=== PATIENT | female | born 1955 | race Caucasian/White ===

== ENCOUNTER → 2019-05-26 17:08 | Emergency (ER) | payer MEDICARE, SELFPAY ==
--- NOTE | ~2019-05-26 | XR_ITS ---
EXAMINATION: XR chest 2V DATE: 05/26/2019 18:28 INDICATION: Shortness of breath and cough and wheezing. TECHNIQUE: Frontal and lateral views of the chest were obtained. COMPARISON: Chest 2 views 05/15/2019, CT abdomen and pelvis 04/08/2013 FINDINGS: There is chronic eventration of anterior right hemidiaphragm. No pneumonia, pleural effusio n, or pneumothorax. The heart size is normal. IMPRESSION: 1. No acute cardiopulmonary disease. Reviewed, dictated and finalized at location A. CTOR OF ADMISSIONS
[2019-05-26 17:09] VITALS: BP 144/66; PULSE 81; RESP 19; TEMP 36.9; O2SAT 98
--- NOTE | 2019-05-26 17:16 | ED.SOB ---
HPI - SOB/Dyspnea General Chief Complaint: Shortness of Breath/Dyspnea Stated Complaint: SOB Time Seen by Provider: 05/26/19 17:15 Source: patient and RN notes reviewed Mode of arrival: ambulatory Limitations: no limitations History of Present Illness HPI Narrative: A 63 y/o female presents to the ED with SOB for the past couple weeks. She states that she has been seen by her PCP for this issue and was given Levaquin for 10 days, which she completed yesterday, and an inhaler, but denies it alleviating her symptoms. She reports associated cough, wheezes, and fatigue. She notes that her SOB is aggravated with exertion. She denies any CP, fevers, chills, sweats, N/V/D, or ABD pain. MD elicited complaint: shortness of breath Onset (ago): week(s) (a couple) Exacerbating factors: exertion Relieving factors: nothing Associated symptoms: cough, wheezing and other (fatigue) Related Data Home Medications Medication Instructions Recorded Confirmed aspirin 81 mg tablet,delayed 81 mg PO DAILY 05/15/19 release bupropion HCl 300 mg 24 hr tablet, 300 mg PO QAM 05/15/19 extended release calcium carb 300 mg-D3 800 1 tablet PO DAILY 05/15/19 unit-mag ox 25 mg-ad copy writer 0.5 mg-jose-Zn tablet cetirizine 10 mg tablet 10 mg PO DAILY 05/15/19 clotrimazole-betamethasone 1 1 applic TOPICAL BID 05/15/19 %-0.05 % topical cream cyclobenzaprine 10 mg tablet 10 mg PO TID 05/15/19 escitalopram oxalate 20 mg tablet 20 mg PO DAILY 05/15/19 lamotrigine 200 mg tablet 200 mg PO BID 05/15/19 levothyroxine 88 mcg tablet 88 mcg PO DAILY 05/15/19 linaclotide 145 mcg capsule 145 mcg PO DAILY 05/15/19 lorazepam 1 mg tablet 1 mg PO BID PRN 05/15/19 metoprolol tartrate 50 mg tablet 50 mg PO DAILY 05/15/19 modafinil 200 mg tablet 200 mg PO QAM 05/15/19 montelukast 10 mg tablet 10 mg PO DAILY 05/15/19 nystatin 100,000 unit/gram topical 1 applic TOPICAL BID 05/15/19 powder omeprazole 40 mg capsule,delayed 40 mg PO BID 05/15/19 release oxybutynin chloride 5 mg tablet 5 mg PO TID 05/15/19 primidone 250 mg tablet 500 mg PO TID tablet 05/15/19 prochlorperazine maleate 10 mg 10 mg PO Q8H PRN 05/15/19 tablet prochlorperazine maleate 10 mg 10 mg PO TID PRN tablet 05/15/19 tablet topiramate 100 mg tablet 100 mg PO DAILY 05/15/19 trazodone 100 mg tablet 200 mg PO BID tablet 05/15/19 Allergies Allergy/AdvReac Type Severity Reaction Status Date / Time Penicillins Allergy Mild Swelling Unverified 05/15/19 10:37 of Lip/Tongue/Throat amoxicillin Allergy Unknown Swelling Verified 05/15/19 10:37 of Lip/Tongue/Throat tetracycline Allergy Unknown Swelling Verified 05/15/19 10:37 of Lip/Tongue/Throat Review of Systems Review of Systems: All systems reviewed & are unremarkable except as noted in HPI and below Constitutional: Constitutional: Denies chills, Reports fatigue, Denies fever(s) and Denies other (sweats) Cardiovascular: Cardiovascular: Denies chest pain Respiratory: Respiratory: Reports cough, Reports dyspnea and Reports wheezing Gastrointestinal: Gastrointestinal: Denies abdominal pain, Denies diarrhea, Denies nausea and Denies vomiting [facility] Past Medical History Medical History (Updated 05/26/19 @ 19:12 by Josue Chow MD) Anxiety (Acute) Arthritis (Acute) Bronchospasm (Acute) patient transferred by private vehicle to the emergency room for further evaluati Carpal tunnel syndrome (Acute) lt Depression (Acute) Fibromyalgia (Acute) GERD (gastroesophageal reflux disease) (Acute) H/O: HTN (hypertension) (Acute) Hx of headache (Acute) MVP (mitral valve prolapse) (Acute) Peripheral neuropathy (Acute) Raynauds disease (Acute) Surgical History Surgical History (Updated 05/26/19 @ 17:35 by Martinez Rey) History of appendectomy (Acute) History of carpal tunnel release (Acute) lt History of cholecystectomy (Acute) History of dilation and curettage (Acute) History of hysterectomy (Ac
[2019-05-26 17:20] VITALS: PULSE 82; RESP 18; O2SAT 100
[2019-05-26] MEDS: predniSONE 20 MG TABLET 60 MG PO (17:37)
[2019-05-26] MEDS: ALBUTEROL SULFATE NEB 2.5 MG/0.5 ML INH 10 MG INHALATION (17:53)
[2019-05-26] MEDS: IPRATROPIUM BR 0.02% INH SOLN 0.5 MG/2.5 ML VIAL 1 MG INHALATION (17:53)
[2019-05-26 18:02] VITALS: PULSE 74; RESP 18; O2SAT 96
--- NOTE | 2019-05-26 19:10 | PC.NURSE ---
Patient's oxygen monitored during ambulation assessment. O2 sat dropped to 94% during ambulation with no supplemental O2. Dr Chow aware.
[2019-05-26 19:29] VITALS: BP 107/63; PULSE 103; RESP 18; O2SAT 99
== END ==
PROVIDERS: Emergency Provider Emergency Medicine; PCP Family Medicine
DX: R06.09 Other forms of dyspnea (principal); R06.2 Wheezing; F41.9 Anxiety disorder, unspecified; M19.90 Unspecified osteoarthritis, unspecified site; F32.9 Major depressive disorder, single episode, unspecified; M79.7 Fibromyalgia; I10 Essential (primary) hypertension; I34.1 Nonrheumatic mitral (valve) prolapse; Z87.891 Personal history of nicotine dependence
CPT/HCPCS: 71046; 99283; J7512

== ENCOUNTER 2020-12-30 08:34 | Outpatient (CLI) | payer MEDICARE, SELFPAY ==
[2020-12-30 16:43] LABS: Basophils Percent Auto 0.6 % (0.2-1.2); Eosinophils Absolute Auto 0.1 K/mm3 (0-0.3); Eosinophils Percent Auto 2.7 % (0-4.4); Hematocrit 36.9 % (37.0-47.0); Hemoglobin 11.5 g/dL (12.0-15.0); Immature Granulocyte Absolute 0.01 K/mm3 (0.00-0.031); Immature Granulocyte Percent A 0.2 % (0-0.5); Lymphocytes Absolute Auto 1.24 K/mm3 (0.9-3.2); Lymphocytes Percent Auto 26.1 % (18.3-44.2); Mean Corpuscular HGB Conc 31.2 g/dl (32-36); Mean Corpuscular Hemoglobin 29.3 pg (26-34); Mean Corpuscular Volume 94.1 fl (80-100); Mean Platelet Volume 10.7 fl (7.4-10.4); Monocytes Absolute Auto 0.3 K/mm3 (0.1-0.6); Monocytes Percent Auto 6.5 % (2.6-8.5); Neutrophils Percent Auto 63.9 % (45.5-73.1); Platelet Count Result 176 k/mm3 (150-375); Red Blood Count 3.92 M/mm3 (4.2-5.4); Red Cell Distribution Width 14.5 % (11.5-14.5); White Blood Count 4.8 K/mm3 (4.5-10.0)
[2020-12-30 16:50] LABS: Alanine Aminotransferase 38 U/L (4-35); Albumin Level 4.4 g/dL (3.5-5.1); Alkaline Phosphatase 92 U/L (38-126); Anion Gap 9 mmol/L (8-16); Aspartate Amino Transferase 39 U/L (14-36); Bilirubin,Total 0.5 mg/dL (0.2-1.3); Blood Urea Nitrogen 19 mg/dL (7-17); Calcium 9.3 mg/dL (8.4-10.2); Carbon Dioxide 28 mmol/L (22-30); Chloride 99 mmol/L (98-107); Cholesterol 172 mg/dL (0-200); Estimated Glomerular Filt Rate 56; Glucose 95 mg/dL (65-105); HDL Direct 68 mg/dL; Potassium 4.1 mmol/L (3.4-5.0); Sodium 136 mmol/L (137-145); Triglycerides 104 mg/dL (<150)
[2020-12-30 17:01] LABS: LDL Cholesterol Direct 74 mg/dL
[2020-12-30 17:06] LABS: Vitamin D 25 Hydroxy 42.6 ng/mL
[2020-12-30 17:21] LABS: Thyroid Stimulating Hormone 0.924 uIU/mL (0.465-4.680)
[2021-01-03 13:30] LABS: C-Peptide 2.71 ng/mL (0.80-3.85)
== END 2020-12-30 08:35 | disposition home or self-care (01) ==
LOC: ANHBWCLAB 08:36
PROVIDERS: PCP Family Medicine; Visit Provider Family Medicine
DX: M79.7 Fibromyalgia (principal); E87.1 Hypo-osmolality and hyponatremia; R79.89 Other specified abnormal findings of blood chemistry; E53.8 Deficiency of other specified B group vitamins; F41.9 Anxiety disorder, unspecified; R53.83 Other fatigue; E03.9 Hypothyroidism, unspecified; R94.6 Abnormal results of thyroid function studies; F19.90 Other psychoactive substance use, unspecified, uncomplicated; M34.9 Systemic sclerosis, unspecified; N39.0 Urinary tract infection, site not specified; E55.9 Vitamin D deficiency, unspecified; Z51.81 Encounter for therapeutic drug level monitoring; Z79.899 Other long term (current) drug therapy; Z00.00 Encounter for general adult medical examination without abnormal findings
CPT/HCPCS: 36415; 80053; 80061; 82306; 82607; 82746; 84443; 84681; 85025

== ENCOUNTER 2021-06-01 11:36 | Outpatient (CLI) | payer MEDICARE, SELFPAY ==
[2021-06-01 18:49] LABS: Basophils Percent Auto 0.6 % (0.2-1.2); Eosinophils Absolute Auto 0.2 K/mm3 (0-0.3); Eosinophils Percent Auto 3.8 % (0-4.4); Hematocrit 39.1 % (37.0-47.0); Hemoglobin 12.2 g/dL (12.0-15.0); Immature Granulocyte Absolute 0.01 K/mm3 (0.00-0.031); Immature Granulocyte Percent A 0.2 % (0-0.5); Lymphocytes Absolute Auto 1.58 K/mm3 (0.9-3.2); Lymphocytes Percent Auto 33.7 % (18.3-44.2); Mean Corpuscular HGB Conc 31.2 g/dl (32-36); Mean Corpuscular Hemoglobin 29.8 pg (26-34); Mean Corpuscular Volume 95.6 fl (80-100); Mean Platelet Volume 10.6 fl (7.4-10.4); Monocytes Absolute Auto 0.3 K/mm3 (0.1-0.6); Monocytes Percent Auto 6.4 % (2.6-8.5); Neutrophils Absolute Auto 2.6 K/mm3 (1.3-6.7); Neutrophils Percent Auto 55.3 % (45.5-73.1); Platelet Count Result 176 k/mm3 (150-375); Red Blood Count 4.09 M/mm3 (4.2-5.4); Red Cell Distribution Width 13.9 % (11.5-14.5); White Blood Count 4.7 K/mm3 (4.5-10.0)
[2021-06-01 20:51] LABS: Alanine Aminotransferase 44 U/L (4-35); Albumin Level 4.8 g/dL (3.5-5.1); Alkaline Phosphatase 110 U/L (38-126); Anion Gap 14 mmol/L (8-16); Aspartate Amino Transferase 42 U/L (14-36); Bilirubin,Total 0.4 mg/dL (0.2-1.3); Blood Urea Nitrogen 15 mg/dL (7-17); Calcium 9.4 mg/dL (8.4-10.2); Carbon Dioxide 24 mmol/L (22-30); Chloride 97 mmol/L (98-107); Estimated Glomerular Filt Rate > 60; Glucose 102 mg/dL (65-110); Potassium 4.5 mmol/L (3.4-5.0); Sodium 135 mmol/L (137-145)
[2021-06-01 21:08] LABS: Vitamin D 25 Hydroxy 37.3 ng/mL
[2021-06-01 21:22] LABS: Thyroid Stimulating Hormone Reflex 0.884 uIU/mL (0.465-4.68)
== END 2021-06-01 11:37 | disposition home or self-care (01) ==
PROVIDERS: PCP Family Medicine; Visit Provider Family Medicine
DX: N39.0 Urinary tract infection, site not specified (principal); D64.9 Anemia, unspecified; E03.9 Hypothyroidism, unspecified; E53.8 Deficiency of other specified B group vitamins; E87.1 Hypo-osmolality and hyponatremia; E87.6 Hypokalemia; F41.9 Anxiety disorder, unspecified; M79.7 Fibromyalgia; R79.89 Other specified abnormal findings of blood chemistry; R94.6 Abnormal results of thyroid function studies; E55.9 Vitamin D deficiency, unspecified
CPT/HCPCS: 36415; 80053; 82306; 82607; 84443; 85025

== ENCOUNTER 2021-06-28 09:50 | Outpatient (CLI) | payer MEDICARE, OTHER, SELFPAY ==
--- NOTE | ~2021-06-28 | US_ITS ---
EXAMINATION: US abdomen limited DATE: 06/28/2021 10:19 INDICATION: Abnormal liver function tests. TECHNIQUE: Multiple grayscale and Doppler ultrasound images of the abdomen were obtained. COMPARISON: CT abdomen and pelvis 04/08/2013 FINDINGS: The visualized portions of the head, body, and tail of the pancreas are normal. There is di ffuse hepatic steatosis. There is normal flow in main portal vein. The gallbladder is absent. The com mon duct is normal and measures 6 mm. IMPRESSION: 1. Diffuse hepatic steatosis. Reviewed, dictated and finalized at location A. 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
[2021-06-28 10:42] LABS: Alanine Aminotransferase 38 U/L (4-35); Albumin Level 4.7 g/dL (3.5-5.1); Alkaline Phosphatase 103 U/L (38-126); Aspartate Amino Transferase 34 U/L (14-36); Bilirubin,Total 0.4 mg/dL (0.2-1.3)
[2021-06-28 12:57] LABS: Hepatitis B Surface Antigen Negative (Negative)
[2021-06-28 13:01] LABS: HAV RESULT Negative (Negative); Hepatitis B Core IgM Result Negative (Negative)
[2021-06-28 13:25] LABS: Hepatitis C Virus Antibody Negative (Negative)
[2021-07-01 13:35] LABS: GGT 39 U/L (3-65)
== END 2021-06-28 09:51 | disposition home or self-care (01) ==
PROVIDERS: PCP Family Medicine; Visit Provider Family Medicine
DX: R74.8 Abnormal levels of other serum enzymes (principal); K76.0 Fatty (change of) liver, not elsewhere classified
CPT/HCPCS: 36415; 76705; 80074; 80076; 82977

== ENCOUNTER 2021-11-29 11:14 | Outpatient (CLI) | payer MEDICARE, OTHER, SELFPAY ==
[2021-11-29 18:37] LABS: Hematocrit 37.3 % (37.0-47.0); Hemoglobin 11.8 g/dL (12.0-15.0); Mean Corpuscular HGB Conc 31.6 g/dl (32-36); Mean Corpuscular Hemoglobin 29.4 pg (26-34); Mean Platelet Volume 10.4 fl (7.4-10.4); Platelet Count Result 192 k/mm3 (150-375); Red Blood Count 4.01 M/mm3 (4.2-5.4); Red Cell Distribution Width 14.6 % (11.5-14.5)
[2021-11-29 19:45] LABS: Alanine Aminotransferase 49 U/L (6-35); Albumin Level 4.5 g/dL (3.5-5.1); Alkaline Phosphatase 87 U/L (38-126); Anion Gap 9 mmol/L (8-16); Aspartate Amino Transferase 44 U/L (14-36); Bilirubin,Total 0.4 mg/dL (0.2-1.3); Blood Urea Nitrogen 20 mg/dL (7-17); Carbon Dioxide 26 mmol/L (22-30); Chloride 103 mmol/L (98-107); Estimated Glomerular Filt Rate 56; Glucose 101 mg/dL (65-110); Potassium 4.6 mmol/L (3.4-5.0); Sodium 138 mmol/L (137-145)
[2021-12-04 23:56] LABS: ALT 39 U/L (6-29); Alpha-2-Macroglobulin 248 mg/dL (106-279); Apolipoprotein A1 176 mg/dL (101-198); Fibrosis Stage F0; GGT 45 U/L (3-65); Haptoglobin 155 mg/dL (43-212); Necroinflammat Act Grade A0-A1; Total Bilirubin 0.3 mg/dL (0.2-1.2)
== END 2021-11-29 11:15 | disposition home or self-care (01) ==
PROVIDERS: PCP Family Medicine; Visit Provider Family Medicine
DX: N39.0 Urinary tract infection, site not specified (principal); R74.8 Abnormal levels of other serum enzymes; E87.1 Hypo-osmolality and hyponatremia; D64.9 Anemia, unspecified; E87.6 Hypokalemia; E03.9 Hypothyroidism, unspecified; K76.0 Fatty (change of) liver, not elsewhere classified
CPT/HCPCS: 36415; 80053; 81596; 84443; 85027

== ENCOUNTER 2022-03-14 14:14 | Outpatient (CLI) | payer MEDICARE, OTHER, SELFPAY ==
--- NOTE | ~2022-03-14 | MM_ITS ---
EXAMINATION: MM screening clementine BI w aire HISTORY: Screening mammogram TECHNIQUE: Craniocaudal and mediolateral oblique 3-D tomosynthesis images were obtained and synthetic 2-D images were generated. CAD analysis was submitted and interpreted. COMPARISON: 12/26/2017, 09/02/2008 BREAST PARENCHYMAL COMPOSITION: The breasts are almost entirely fatty. FINDINGS: There is no suspicious mass, calcification, or architectural distortion to suggest malignan cy in either breast. There has been no suspicious interval change. IMPRESSION: 1. No mammographic evidence of malignancy. 2. Recommend routine screening mammography in one year. BI-RADS Category 1: Negative Reviewed, dictated and finalized at location A.
== END 2022-03-14 14:15 | disposition home or self-care (01) ==
PROVIDERS: PCP Family Medicine; Visit Provider Family Medicine
DX: Z12.31 Encounter for screening mammogram for malignant neoplasm of breast (principal)
CPT/HCPCS: 77063; 77067

== ENCOUNTER 2022-07-04 13:18 | Outpatient (CLI) | payer MEDICARE, OTHER, SELFPAY ==
[2022-07-04 18:11] LABS: Cholesterol 223 mg/dL (0-200); HDL Direct 64 mg/dL; Triglycerides 212 mg/dL (<150)
[2022-07-04 18:23] LABS: LDL Cholesterol Direct 104 mg/dL
[2022-07-04 18:39] LABS: Thyroid Stimulating Hormone 0.943 uIU/mL (0.465-4.680)
[2022-07-04 19:05] LABS: Basophils Percent Auto 0.6 % (0.2-1.2); Eosinophils Absolute Auto 0.3 K/mm3 (0-0.3); Eosinophils Percent Auto 6.6 % (0-4.4); Hematocrit 40.5 % (37.0-47.0); Hemoglobin 12.4 g/dL (12.0-15.0); Immature Granulocyte Absolute 0.02 K/mm3 (0.00-0.031); Immature Granulocyte Percent A 0.4 % (0-0.5); Lymphocytes Absolute Auto 1.55 K/mm3 (0.9-3.2); Lymphocytes Percent Auto 29.9 % (18.3-44.2); Mean Corpuscular HGB Conc 30.6 g/dl (32-36); Mean Corpuscular Hemoglobin 28.3 pg (26-34); Mean Corpuscular Volume 92.5 fl (80-100); Mean Platelet Volume 10.2 fl (7.4-10.4); Monocytes Absolute Auto 0.3 K/mm3 (0.1-0.6); Monocytes Percent Auto 5.2 % (2.6-8.5); Neutrophils Percent Auto 57.3 % (45.5-73.1); Platelet Count Result 192 k/mm3 (150-375); Red Blood Count 4.38 M/mm3 (4.2-5.4); White Blood Count 5.2 K/mm3 (4.5-10.0)
== END 2022-07-04 13:19 | disposition home or self-care (01) ==
PROVIDERS: PCP Family Medicine; Visit Provider Family Medicine
DX: E03.9 Hypothyroidism, unspecified (principal); E87.1 Hypo-osmolality and hyponatremia; N39.0 Urinary tract infection, site not specified; R94.6 Abnormal results of thyroid function studies
CPT/HCPCS: 36415; 80061; 84443; 85025

== ENCOUNTER 2022-12-10 14:22 | Outpatient (CLI) | payer MEDICARE, OTHER, SELFPAY ==
[2022-12-10 19:34] LABS: Vitamin D 25 Hydroxy 27.3 ng/mL
[2022-12-10 22:04] LABS: Anion Gap 8 mmol/L (8-16); Blood Urea Nitrogen 19 mg/dL (7-17); Calcium 9.2 mg/dL (8.4-10.2); Carbon Dioxide 29 mmol/L (22-30); Chloride 101 mmol/L (98-107); Cholesterol 189 mg/dL (0-200); Estimated Glomerular Filt Rate > 60; Glucose 98 mg/dL (65-110); HDL Direct 64 mg/dL; Potassium 4.3 mmol/L (3.4-5.0); Sodium 138 mmol/L (137-145); Triglycerides 150 mg/dL (<150)
[2022-12-10 22:15] LABS: LDL Cholesterol Direct 103 mg/dL
== END 2022-12-10 14:23 | disposition home or self-care (01) ==
PROVIDERS: PCP Family Medicine; Visit Provider Nurse Practitioner Adult Health
DX: E03.9 Hypothyroidism, unspecified (principal); R94.6 Abnormal results of thyroid function studies; I10 Essential (primary) hypertension; R79.89 Other specified abnormal findings of blood chemistry; E55.9 Vitamin D deficiency, unspecified
CPT/HCPCS: 36415; 80048; 80061; 82306; 84443

== ENCOUNTER 2023-06-10 14:20 | Outpatient (CLI) | payer MEDICARE, OTHER, SELFPAY ==
[2023-06-10 19:43] LABS: Basophils Percent Auto 0.8 % (0.2-1.2); Eosinophils Absolute Auto 0.3 K/mm3 (0-0.3); Eosinophils Percent Auto 4.8 % (0-4.4); Hemoglobin 11.1 g/dL (12.0-15.0); Immature Granulocyte Absolute 0.02 K/mm3 (0.00-0.031); Immature Granulocyte Percent A 0.4 % (0-0.5); Lymphocytes Absolute Auto 1.64 K/mm3 (0.9-3.2); Lymphocytes Percent Auto 31.5 % (18.3-44.2); Mean Corpuscular HGB Conc 30.8 g/dl (32-36); Mean Corpuscular Volume 90.7 fl (80-100); Mean Platelet Volume 10.7 fl (7.4-10.4); Monocytes Absolute Auto 0.3 K/mm3 (0.1-0.6); Neutrophils Percent Auto 56.5 % (45.5-73.1); Platelet Count Result 186 k/mm3 (150-375); Red Blood Count 3.97 M/mm3 (4.2-5.4); Red Cell Distribution Width 14.1 % (11.5-14.5); White Blood Count 5.2 K/mm3 (4.5-10.0)
[2023-06-10 20:11] LABS: Anion Gap 13 mmol/L (8-16); Blood Urea Nitrogen 26 mg/dL (7-17); Calcium 9.6 mg/dL (8.4-10.2); Carbon Dioxide 25 mmol/L (22-30); Chloride 100 mmol/L (98-107); Cholesterol 189 mg/dL (0-200); Estimated Glomerular Filt Rate 55; Glucose 106 mg/dL (65-110); HDL Direct 54 mg/dL; Magnesium 1.6 mg/dL (1.6-2.3); Potassium 3.9 mmol/L (3.4-5.0); Sodium 138 mmol/L (137-145); Triglycerides 228 mg/dL (<150)
[2023-06-10 20:22] LABS: LDL Cholesterol Direct 90 mg/dL
[2023-06-10 20:23] LABS: Vitamin D 25 Hydroxy 50.5 ng/mL
[2023-06-10 21:17] LABS: Folic Acid 4.2 ng/mL (2.76->20)
== END 2023-06-10 14:21 | disposition home or self-care (01) ==
PROVIDERS: PCP Nurse Practitioner Adult Health; Visit Provider Nurse Practitioner Adult Health
DX: E55.9 Vitamin D deficiency, unspecified (principal); E53.8 Deficiency of other specified B group vitamins; I10 Essential (primary) hypertension; R79.89 Other specified abnormal findings of blood chemistry
CPT/HCPCS: 36415; 80048; 80061; 82306; 82607; 82746; 83735; 84443; 85025

== ENCOUNTER 2023-12-16 14:01 | Outpatient (CLI) | payer MEDICARE, OTHER, SELFPAY ==
[2023-12-16 18:56] LABS: Basophils Percent Auto 0.7 % (0.2-1.2); Eosinophils Absolute Auto 0.2 K/mm3 (0-0.3); Eosinophils Percent Auto 3.8 % (0-4.4); Hematocrit 36.3 % (37.0-47.0); Immature Granulocyte Absolute 0.02 K/mm3 (0.00-0.031); Immature Granulocyte Percent A 0.3 % (0-0.5); Lymphocytes Absolute Auto 1.48 K/mm3 (0.9-3.2); Lymphocytes Percent Auto 25.8 % (18.3-44.2); Mean Corpuscular HGB Conc 30.3 g/dl (32-36); Mean Corpuscular Hemoglobin 27.9 pg (26-34); Mean Corpuscular Volume 92.1 fl (80-100); Mean Platelet Volume 10.4 fl (7.4-10.4); Monocytes Absolute Auto 0.4 K/mm3 (0.1-0.6); Monocytes Percent Auto 6.5 % (2.6-8.5); Neutrophils Absolute Auto 3.6 K/mm3 (1.3-6.7); Neutrophils Percent Auto 62.9 % (45.5-73.1); Platelet Count Result 187 k/mm3 (150-375); Red Blood Count 3.94 M/mm3 (4.2-5.4); Red Cell Distribution Width 14.2 % (11.5-14.5); White Blood Count 5.7 K/mm3 (4.5-10.0)
[2023-12-16 19:26] LABS: Vitamin D 25 Hydroxy 72.9 ng/mL
[2023-12-16 20:11] LABS: Alanine Aminotransferase 25 U/L (6-35); Albumin Level 5.1 g/dL (3.5-5.1); Alkaline Phosphatase 77 U/L (38-126); Anion Gap 14 mmol/L (4-12); Aspartate Amino Transferase 47 U/L (14-36); Bilirubin,Total 0.4 mg/dL (0.2-1.3); Blood Urea Nitrogen 24 mg/dL (7-17); Calcium 9.7 mg/dL (8.4-10.2); Carbon Dioxide 24 mmol/L (22-30); Chloride 99 mmol/L (98-107); Cholesterol 196 mg/dL (0-200); Estimated Glomerular Filt Rate 50; Glucose 119 mg/dL (65-110); HDL Direct 57 mg/dL; Magnesium 1.6 mg/dL (1.6-2.3); Potassium 3.6 mmol/L (3.4-5.0); Sodium 137 mmol/L (137-145); Triglycerides 179 mg/dL (<150)
[2023-12-16 20:20] LABS: LDL Cholesterol Direct 99 mg/dL
== END 2023-12-16 14:02 | disposition home or self-care (01) ==
PROVIDERS: PCP Nurse Practitioner Adult Health; Visit Provider Nurse Practitioner Adult Health
DX: I10 Essential (primary) hypertension (principal); E53.8 Deficiency of other specified B group vitamins; R79.89 Other specified abnormal findings of blood chemistry; Z79.899 Other long term (current) drug therapy
CPT/HCPCS: 36415; 80053; 80061; 82306; 82607; 83735; 84443; 85025

== ENCOUNTER 2024-08-07 15:12 | Outpatient (CLI) | payer MEDICARE, OTHER, SELFPAY ==
--- NOTE | ~2024-08-07 | MM_ITS ---
EXAMINATION: MM screening clementine BI w arie HISTORY: Screening TECHNIQUE: Craniocaudal and mediolateral oblique 3-D tomosynthesis images were obtained and synthetic 2-D images were generated. CAD analysis was submitted and interpreted. COMPARISON: Comparison to multiple prior studies sequentially, with oldest reviewed study dated 10/2017. BREAST PARENCHYMAL COMPOSITION: Not Dense: The breasts are almost entirely fatty. FINDINGS: There is no evidence of suspicious mass, calcification, or architectural distortion to sugg est malignancy in either breast. There has been no suspicious interval change. IMPRESSION: 1. No mammographic evidence of malignancy. 2. Recommend routine screening mammography in one year. BI-RADS Category 1: Negative Reviewed, dictated and finalized at location B. O TYPIST
--- OUTSIDE RECORDS SUMMARY | 2024-08-07 15:17 | XMS_ITS ---
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 Name Role Phone Thelma Jin APRN Primary Care Provider Shari Orourke Unavailable [phone] Theodore Wilson Unavailable [phone] Allergies Allergen (clinical drug ingredient) Drug/Non Drug Allergy documented on EMR Reaction Allergy Type Onset Date Status amoxicillin Amoxicillin Unknown Drug Allergy 02/07/2022 Ac tive tetracycline Tetracycline Unknown Drug Allergy 02/07/2022 Active REASON FOR VISIT follow-up, Depression screening positive Medications Medication SIG (Take, Route, Frequency, Duration) Notes Start Date End Date Status Losartan Potassium 100 MG TAKE 1 TABLET BY MOUTH EVERY DAY Oral for 90 Days Active hydroCHLOROthiazide 25 MG TAKE ONE TABLE T BY MOUTH DAILY Oral for 90 Days Active Omeprazole 40 MG TAKE 1 CAPSULE BY MOUTH TWICE A DAY Oral for 90 Days Active Carvedilol 12.5 MG TAKE ONE TABLET (12.5MG) BY MOUTH EVERY 12 HOURS MUST ADMINISTER WITH A MEAL/FOOD Oral for 90 Days Active Montelukast Sodium 10 MG TAKE 1 TABLET B Y MOUTH EVERY DAY Oral for 90 Days Active QUEtiapine Fumarate ER 300 MG 1 tablet in the evening Oral Once a day for 90 days dc quetiapine er 150mg Active Sertraline HCl 50 MG 1 tablet Oral Once a day for 90 days Active Klayesta 640323 UNIT/GM APPLY TOPICALLY TWICE A DAY External for 30 Days Active Levothyroxine Sodium 88 MCG TAKE 1 TABLET BY MOUTH EVERY DAY Oral for 90 Days Active Nystatin 943422 UNIT/GM APPLY TOPICALLY TWICE A DAY External for 30 Days Active busPIRone HCl 10 MG 1 tablet Oral Twice a day for 90 days Active lamoTRIgine 100 MG 1 tablet Oral twice a day for 90 days Active QUEtiapine Fumarate 400 MG 1 tablet ever y night Oral Once a day for 90 days Active Social History Tobacco Use: Social History Observation Description Date Details (start date - stop date) Former Smoker 12/03/1970 - 05/24/2018 Sex Assigned At : Social History Observation Description Sex Assigned At Female Tobacco Control (Standard) Question Answer Notes Tobacco use: Former smoker When did you start smoking? 12/03/1970 When did you stop smoking? 05/24/2018 How long has it been since you last smoked? 5-10 years Vital Signs Blood pressure systolic 128 mm Hg 08/06/19 25 Blood pressure diastolic 80 mm Hg 025 Heart Rate 91 /min 08/06/2024 Height 64.00 in 08/06/2024 Weight 206 lbs 08/06/2024 BMI 35.36 kg/m2 08/06/2024 Height-cm 162.56 cm 08/06/2024 Weight-kg 93.44 kg 08/06/2024 Encounters Encounter Location Date Provider Diagnosis [facility] [employer] [address] [facility] [address] [address] 08/06/2024 Thedoore Wilson Bipolar disorder, current episode depressed, severe, without psychotic features F31.4 ; Primary insomnia F51.01 ; Post-traumatic stress disorder, unspecified F43.10 and Generalized anxiety disorder F41.1 Assessments Encounter Date Diagnosis (ICD Code) Assessment Notes Treatment Notes Treatment Clinical Notes Section Notes 08/06/2024 Bipolar disorder, current episode depressed, severe, without psychotic features (ICD-10 - F31.4) 08/06/2024 Primary insomnia (ICD-10 - F51.01) 08/06/2024 Post-traumatic stress disorder, unspecified (ICD-10 - F43.10) 08/06/2024 Generalized anxiety disorder (ICD-10 - F41.1) Plan Of Treatment Medication Medication Name Sig Start Date Stop Date Notes QUEtiapine Fumarate ER 300 MG 1 tablet in the evening Oral Once a day for 90 days dc quetiapine er 150 mg Sertraline HCl 50 MG 1 tablet Oral Once a day for 90 days busPIRone HCl 10 MG 1 tablet Oral Twice a day for 90 days lamoTRIgine 100 MG 1 tablet Oral twice a day for 90 days QUEtiapine Fumarate 400 MG 1 tablet every night Oral Once a day for 90 days Next Appt Details Follow Up: 6 Weeks, Reason: f/u bipolar d/o Provider Name:Theodore bhagat, 09/17/2024 01:30:00 PM, [address], [facility] [address], [place], [address], Progress Notes * TOMMY TEJEDADOB:1955 (69 yo F)Acc No.[id number]:08/06/2024 Patient: TOMMY NIEVES Provider: MARIO SANDOVAL :1955 A ge:69 Y S ex:Female Date:08/06/2024 Address:[facility] [address], [facility] Pcp:Thelma Jin APRN Subjective: * Chief Complaints: * 1 . Follow-up. 2. Depression screening positive. * HPI: D epression Screening: FRANCISCO-7 (2018 Edition) F eeling nervous, anxious, or on edge?More than half the days, N ot being able to stop or control worrying N early every day,?Worrying too much about different things N early every day, T rouble relaxing N early every day, B eing so restless that it is hard to sit still N ot at all, B ecoming easily annoyed or irritable M ore than half the days, F eeling afraid as if something awful might happen N early every day, I f you checked any problems, how difficult have they made it for you to do your work, take care of things at home, or get along with other people? V maximino difficult. C [place]-Suicide Severity Rating Scale: Suicide Risk (CSRS-screener) i n the past one month Have you wished you were or wished you could go to sleep and not wake up? N o, i n the past one month Have you actually had any thoughts of killing yourself? N o, H ave you ever done anything, started to do anything, or prepared to do anything to end your life? N o. D epression screening: PHQ-9 L ittle interest or pleasure in doing things N early every day, F eeling down, depressed, or hopeless N early every day, T rouble falling or staying asleep, or sleeping too much S everal days, F eeling tired or having little energy N early every day, P oor appetite or overeating N ot at all, F eeling bad about yourself or that you are a failure, or have let yourself or your family down N early every day, Trouble concentrating on things, such as reading the newspaper or watching television M ore than half the days, M oving or speaking so slowly that other people could have noticed; or the opposite, being so fidgety or restless that you have been moving around a lot more than usual N ot at all, T houghts that you would be better off or of hurting yourself in some way N ot at all, T otal Score 1 5, I nterpretation M oderately Severe Depression. I ntervention D epression Screening Findings P ositve, F ollow-Up for Depression M entnv health treatment assessment, Patient follow-up to return when and if necessary, S uicide Risk Assessment Performed , A dditional Evaluation for Depression P sychiatric interview and evaluation, N jimmy of the standardized tool used for adult depression screening: P atient Health Questionnaire (PHQ-9). H istory of Presenting Problem: Anxiety O nset: years ago. D epression O nset: years ago, A ssociated Symptoms: fatigue, no interest in things. M ood lability b ipolar d/o. P sychotherapy h as done in the past. P ast Medication history: belsomra, trazodone,lunesta, rozerem. * ROS: P erformance Met: N ormal blood pressure reading documented, follow-up not required ( G8783). * Medical History: P roblems: Bipolar affective disorder, current episode depression, Complicated grieving, Generalized anxiety disorder, Posttraumatic stress disorder, Primary insomnia, Psychologic conversion disorder, Tremor, ,, Imported from Highlights: On July 15, 2024, the patient had a hospital encounter at [facility], overseen by Rincker, Christen SPORTS BOOK BOARD ATTENDANT. The patient's ongoing conditions include long-term use of opiate analgesic, lumbar facet arthropathy, and lumbar post-laminectomy syndrome. The patient's use of opiate analgesics indicates chronic pain management, likely due to the lumbar conditions. Lumbar facet arthropathy and post-laminectomy syndrome suggest the patient has had spinal surgery in the past and is experiencing ongoing back issues.. * Social History: T obacco Use: T obacco Control (Standard) T obacco use: F ormer smoker, W hen did you start smoking? 0 12/03/1970, W hen did you stop smoking? 1 07/25/2017, H ow long has it been since you last smoked? 5 -10 years. M igrated Social History: M igrated Social History: Alcohol Intake: None 06/07/2021,Tobacco Years: Former smoker 06/07/2021. M iscellaneous: A dvance Care Planning A re you your own decision-maker Y es, D o you have Power of Graduate Assistant for Health or Medical? N o. * Medications: T aking Klayesta 718122 UNIT/GM Powder APPLY TOPICALLY TWICE A DAY External , Taking Levothyroxine Sodium 88 MCG Tablet TAKE 1 TABLET BY MOUTH EVERY DAY Oral , Taking Nystatin 579738 UNIT/GM Powder APPLY TOPICALLY TWICE A DAY External , Taking Montelukast Sodium 10 MG Tablet TAKE 1 TABLET BY MOUTH EVERY DAY Oral , Taking Losartan Potassium 100 MG Tablet TAKE 1 TABLET BY MOUTH EVERY DAY Oral , Taking hydroCHLOROthiazide 25 MG Tablet TAKE ONE TABLET BY MOUTH DAILY Oral , Taking Omeprazole 40 MG Capsule Delayed Release TAKE 1 CAPSULE BY MOUTH TWICE A DAY Oral , Taking Carvedilol 12.5 MG Tablet TAKE ONE TABLET (12.5MG) BY MOUTH EVERY 12 HOURS MUST ADMINISTER WITH A MEAL/FOOD Oral , Taking busPIRone HCl 10 MG Tablet 1 tablet Oral Twice a day , Taking lamoTRIgine 100 MG Tablet 1 tablet Oral twice a day , Taking QUEtiapine Fumarate 400 MG Tablet 1 tablet every night Oral Once a day , Taking QUEtiapine Fumarate ER 150 MG Tablet Extended Release 24 Hour 1 tablet in the evening Oral Once a day , Taking Sertraline HCl 50 MG Tablet 1 tablet Oral Once a day , Medication List reviewed and reconciled with the patient * Allergies: A moxicillin: Allergy - Onset Date 02/07/2022, Tetracycline: Allergy - Onset Date 02/07/2022. Objective: * Vitals: B P:128/80mm Hg, HR:91/min, Wt:206lbs, Wt-k.44 kg, Ht: 64.00 in, Ht-cm: 162.56 cm, BMI:35.36Index, Body Surface Area: 2.05. * Examination: P sychiatry: Appearance: w ell-groomed, well-nourished, .... Affect / mood: a ppropriate, full range. Attention: g ood. Attitude: c ooperative. Suicidal ideation: n one. Memory status: n o impairment noted. Degree of awareness of surroundings: w ithin normal limits.? Delusions: n o. Hallucinations: n o. Insight: g ood. Intellectual functioning: n o impairment noted. Judgement: g ood. Orientation: a wake, alert and oriented x 3. Perceptual disorders: n o perceptual disorder noted. Psychomotor activity: w ithin normal range. Speech / language: a ppropriate pitch/modulation, clear and coherent, normal rate, volume, and articulation (RVR), proper grammar used. Thought content: a ppropriate. Thought process: i ntact. Assessment: * Assessment: 1. B ipolar disorder, current episode depressed, severe, without psychotic features - F31.4 (Primary) 2 . P rimary insomnia - F51.01 3 . P ost-traumatic stress disorder, unspecified - F43.10 4 . G eneralized anxiety disorder - F41.1? Plan: * Treatment: 2. G eneralized anxiety disorder Refill busPIRone HCl Tablet, 10 MG, 1 tablet, Oral, Twice a day, 90 days, 180 Tablet, Refills 1;?Refill Sertraline HCl Tablet, 50 MG, 1 tablet, Oral, Once a day, 90 days, 90 Tablet, Refills 1.? * Procedure Codes: G 8783 NORMAL BP READING DOC F/U NOT RQR, 41833 BEHAV ASSMT W/SCORE & DOCD/STAND INSTRUMENT, G8431 CLIN DEPRESSION SCREEN DOC, G8752 MOST RECENT SYSTOLIC BP < 140MM HG, G8754 MOST RECENT DIASTOLIC BP < 90MM HG * Follow Up: 6 Weeks (Reason: f/u bipolar d/o) * Billing Information: * Visit Code: 88453 OFFICE OUTPATIENT VISIT 25 MINUTES DETAILED HISTORY AND EXAM/MODERATE MEDICAL DECISION MAKING. * Procedure Codes: G8783 NORMAL BP READING DOC F/U NOT RQR. 27061 BEHAV ASSMT W/SCORE & DOCD/STAND INSTRUMENT. G8431 CLIN DEPRESSION SCREEN DOC. G8752 MOST RECENT SYSTOLIC BP < 140MM HG. G8754 MOST RECENT DIASTOLIC BP < 90MM HG. * Electronic signature of Pablo Wilson HNP on 08/07/2024 at 03:17 PM CONE WORKER Sign off status: Pending * Provider: Nishant WILSON PMHNP Date: 08/06/2024 Generated for Tiki roldan/Cristina/eTransmitting on: 08/07/2024 03:17 PM CONE WORKER History and Physical Notes * HPI (History of Present Illness) Category Sub-Category Detail Notes Category Not es History of Presenting Problem Anxiety Onset: year s ago Depression Onset: years ago, As sociated Symptoms: fatigue, no interest in things Mood lability bipolar d/o Psychotherapy has done in the past Depression screening PHQ-9 Little inte rest or pleasure in doing things: Nearly every day Feeling down, depressed, or hopeless: Ne ruth every day Trouble falling or staying asleep, or sl eeping too much: Several days Feeling tired or having little energy: N early every day Poor appetite or overeating: Not at all Feeling bad about yourself o r that you are a failure, or have let yourself or your family down: Nearly every day Trouble concentrating on thi ngs, such as reading the newspaper or watching television: More than half the days Moving or speaking so slowly that other people could have noticed; or the opposite, being so fidgety or restless that you have been moving around a lot more than usual: Not at all Thoughts that you would be b william off or of hurting yourself in some way: Not at all Total Score: 15 Interpretation: Moderately Severe Depres chance Intervention Depression Screening Findings: P ositve Follow-Up for Depression: [facility] treatment assessment, Patient follow-up to return when and if necessary Suicide Risk Assessment Performed: Additional Evaluation for Depression: Ps ychiatric interview and evaluation Name of the standardized too l used for adult depression screening:: Patient Health Questionnaire (PHQ-9) Depression Screening FRANCISCO-7 (2018 Edition) Feelin g nervous, anxious, or on edge: More than half the days Not being able to stop or control worryi ng: Nearly every day Worrying too much about different things : Nearly every day Trouble relaxing: Nearly every day Being so restless that it is hard to sit still: Not at all Becoming easily annoyed or irritable: Mo re than half the days Feeling afraid as if something awful reyna ht happen: Nearly every day If you checked any problems, how difficult have they made it for you to do your work, take care of things at home, or get along with other people?: Very difficult [place]-Suicide Severity Rating Scale Suicide Risk (CSRS-screener) in the past one month Have you wished you were or wished you could go to sleep and not wake up?: No in the past one month Have y ou actually had any thoughts of killing yourself?: No Have you ever done anything, started to do anything, or prepared to do anything to end your life?: No Examination Category Sub-Category Detail Notes Category Not es Psychiatry Appearance: well-groomed, well-nourished , ... Attitude: cooperative Psychomotor activity: within normal rang e Attention: good Degree of awareness of surroundings: wit hin normal limits Orientation: awake, alert and marleen ented x 3 Affect / mood: appropriate, full ra nge Speech / language: appropriate pitch/mo dulation, clear and coherent, normal rate, volume, and articulation (RVR), proper grammar used Insight: good Judgement: good Thought process: intact Thought content: appropriate Perceptual disorders: no perceptual diso rder noted Suicidal ideation: none Intellectual functioning: no impairment noted Memory status: no impairment noted Delusions: no Hallucinations: no
--- OUTSIDE RECORDS SUMMARY | 2024-08-07 15:17 | XMS_ITS | Clinical Summary ---
Author Organization [facility] Address [address] [place] [address] Care Team Providers Care Academic Guidance Specialist Name Role Phone Barbie Cartagena RN Unavailable Unavailab Leah Santos RN Unavailable Un available Justin Sorensen MD Unavailable [phone] Jett Loera MD Primary Care Provider [phone] Allergies Active Allergy Reactions Criticality Noted Date Comments Amoxicillin Shortness of breath,Swelling,Rash,Other (See comments) High 03/14/2016 Morphine Other (See comments) Low 08/27/2018 HEADACHE Tetracyclines Shortness of breath,Swelling,Rash High 06/03/2017 Medications melatonin 10 mg tablet Take 1 tablet (10 mg total) by mouth daily Active montelukast (SINGULAIR) 10 mg tablet Take 1 tablet (10 mg total) by mouth nightly Active losartan (COZAAR) 100 mg tablet Take 1 tablet (100 mg total) by mouth Active aspirin 81 mg tablet Take 1 tablet (81 mg total) by mouth daily Active cetirizine (ZyrTEC) 10 mg tablet Take 1 tablet (10 mg total) by mouth daily Active lamoTRIgine (LaMICtal) 200 mg tablet 1 8 Active levothyroxine (SYNTHROID, LEVOTHROID) 88 mcg tablet 3 8 Active omeprazole (PriLOSEC) 40 mg capsule Take 1 capsule (40 mg total) by mouth 2 (two) times a day 3 8 Active busPIRone (BUSPAR) 10 mg tablet buspirone 10 mg tablet Active nystatin powder Apply topically 4 (four) times a day Active esomeprazole DR (NexIUM) 20 mg capsule Take 20 mg by mouth daily before breakfast Active prochlorperazi ne (COMPAZINE) 10 mg tablet Take 1 tablet (10 mg total) by mouth every 6 (six) hours as needed for nausea or vomiting Active albuterol HFA (PROVENTIL HFA,VENTOLIN HFA,PROAIR HFA) 90 mcg/actuation inhaler Inhale 2 puffs every 6 (six) hours as needed for wheezing Active diphenoxylate- atropine (LOMOTIL) liquidIndicati ons:diarrhea Take 2.5 mL by mouth 4 (four) times a day as needed for diarrhea Active multivitamin capsule Take 1 capsule by mouth daily Active ergocalciferol (VITAMIN D) 50,000 unit capsule Take 1 capsule (50,000 Units total) by mouth every 30 (thirty) days Active cyanocobalamin (Vitamin B-12) 1,000 mcg tabletIndicati ons:Prevention of Vitamin B12 Deficiency Take 1,000 mcg by mouth daily Active folic acid (FOLVITE) 800 mcg tablet Take 400 mcg by mouth daily Active quetiapine fumarate (QUETIAPINE ORAL) 400 mg 1 Active carvediloL (COREG) 12.5 mg tablet 12.5 MG ORALLY EVERY 12 HOURS MUST ADMINISTER WITH A MEAL/FOOD 3 Active quetiapine fumarate (QUETIAPINE ORAL) 150 mg 3 Active sertraline (ZOLOFT) 100 mg tablet Take 0.5 tablets (50 mg total) by mouth daily 3 Active hydroCHLOROthi azide (HYDRODIURIL) 25 mg tablet Take 1 tablet (25 mg total) by mouth daily 3 Active naloxone (NARCAN) 4 mg/actuation spray,non-aero romelia Administer 1 spray into affected nostril(s) as needed for opioid reversal 1 each 3 Active HYDROcodone-ac etaminophen (NORCO) 10-325 mg per tabletIndicati ons:Pain Take 1 tablet by mouth 4 (four) times a day as needed for pain 120 tablet 5 08/30/19 25 Active HYDROcodone-ac etaminophen (NORCO) 10-325 mg per tabletIndicati ons:Pain Take 1 tablet by mouth 4 (four) times a day as needed for pain 120 tablet 5 09/29/19 25 Active HYDROcodone-ac etaminophen (NORCO) 10-325 mg per tabletIndicati ons:Pain Take 1 tablet by mouth 4 (four) times a day as needed for pain 120 tablet 5 10/29/19 25 Active HYDROcodone-ac etaminophen (NORCO) 10-325 mg per tabletIndicati ons:Pain Take 1 tablet by mouth 4 (four) times a day as needed for pain 120 tablet 5 07/15/19 25 Discontinu ed(Reorder ) Active Problems Problem Noted Date Diagnosed Date Aortic valve regurgitation 03/29/2021 Mitral valve insufficiency 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 09/23 PVC's (premature ventricular contractions) 01/31 Gait disturbance 07/02/2019 Insomnia secondary to chronic pain 04/21/2019 Lumbar facet arthropathy 03/19/2019 Lumbar post-laminectomy syndrome 01/29/2019 Essential tremor 01/26/2019 Involuntary movements 01/26/2019 Restless leg syndrome 01/26/2019 Bradycardia 08/29/2018 Palpitations 08/29/2018 HTN (hypertension), benign 08/29/2018 History of tobacco abuse 08/29/2018 Chronic fatigue 08/29/2018 Resolved Problems Problem Noted Date Diagnosed Date Resolved Date Myofascial pain syndrome of lumbar spine 08/06/2019 05/08/2023 Chronic left-sided low back pain without sciatica - Left 01/29/2019 05/08/2023 Sacroiliitis (CMS/HCC) - Left 01/29/2019 05/08/2023 DDD (degenerative disc disease), lumbar 01/29/2019 05/08/2023 Lumbar radiculopathy 01/29/2019 023 Degenerative lumbar spinal stenosis 01/29/2019 05/08/2023 Encounters Date Type Department Care Team Description 07/15/2024 1:53 PM PROCESSING LEAD - 07/15/2024 11:59 PM PROCESSING LEAD Hospital Encounter [facility] [address] [facility] [address] [place] [address] Sandra Live NP Lumbar facet arthropathy (Primary Dx); Lumbar post-laminectomy syndrome; longterm (current) use of opiate analgesic Discharge Disposition: Discharge to home or self care from Last 3 Months Surgical History Surgery Date Site/Laterality Comments APPENDECTOMY KNEE SURGERY Medical History Medical History Date Comments Hypertension Thyroid disease Acid indigestion Cancer (CMS/HCC) (HCC) Cataracts, bilateral Anxiety Arthritis History of bladder infections Anemia Depression Bipolar 1 disorder (HCC) History of cholecystectomy Low back pain Family History Medical History Relation Name Comments Heart disease Father Lung disease Father Relation Name Status Comments Father (Age 79) Mother (Age 84) Social History Tobacco Use Types Packs/Day Years Used Date Smoking Tobacco: Former Cigarettes 1 40 Smokeless Tobacco: Never Tobacco Cessation:Counseling Given: Not Answered Alcohol Use Standard Drinks/Week Comments No 0 (1 standard drink = 0.6 oz pur e alcohol) PHQ-2 Answer Date Recorded PHQ-2 Total Score (If total score is 3 or more points, staff should administer the PHQ-9) 6 07/15/2024 Comments No Sex and Gender Information Value Date Recorded Sex Assigned at Not on file Legal Sex Female 6:55 AM PROCESSING LEAD Gender Identity Not on file Sexual Orientation Not on file Obstetrics History Last Filed Vital Signs Vital Sign Reading Time Taken Comments Blood Pressure 136/82 07/15/2024 2:05 PM PROCESSING LEAD Pulse 82 07/15/2024 2:05 PM PROCESSING LEAD Temperature 36.3 C (97.3 F) 10/12/2020 11:22 AM CDT Respiratory Rate 18 07/15/2024 2:05 PM PROCESSING LEAD Oxygen Saturation 98% 07/15/2024 2:05 PM PROCESSING LEAD Inhaled Oxygen Concentration - - Weight 97.5 kg (215 lb) 02/22/2023 2:02 PM CDT Height 160 cm (5' 3 ) 02/22/2023 2:02 PM CDT Body Mass Index 38.09 02/22/2023 2:02 PM CDT Plan of Treatment Health Maintenance Due Date Last Done Comments Breast Cancer Screening-Mammogram 1955 Colon Cancer Screening-Colonoscopy 1955 Fall Risk Assessment 1955 Hepatitis C Screening 1955 Osteoporosis Screening-Bone Density Scan 1955 DTaP/Tdap/Td Vaccine (1 - Tdap) 1967 Hepatitis B Screening 1974 Zoster Vaccine (1 of 2) 2006 Pneumococcal vaccine 65+ (1 of 1 - PCV) 2021 Well Visit 65+ 2021 Influenza Vaccine (#1) 2024 8, 03/15/2017, 04/07/2016, Additional history exists Depression Screening 07/15/2025 07/15/2024, 07/15/2024, 04/22/2024, Additional history exists Goals Goal Patient Goal Type Associated Problems Recent Progress Patient-Stated? Author -Pain Behavioral Health On track( 023 1:41 PM PROCESSING LEAD) Carlie Craig RN Note: Patient will establish a comfort-function goal and identify the pain level that will allow the patient to perform desired activities and achieve an acceptable quality of life. -Pain Behavioral Health No Carlie Brumfield RN Medical Devices Implanted Type Area Butadiene Convertor Operator Device Identifier Shelf Expiration Date Model / Serial / Lot Kit Stimulator Octrode L60 Cm Trial Lead Neurostimulator - [id number] Implanted:Qty: 2 on 06/05/2017 by Eddy Johns MD at [facility] N/A: Thoracic- Lumbar Spine [employer] 3086 / / Insurance MEDICARE [facility] MEDICARE [facility] MEDICARE [employer] [facility] Care Teams Academic Guidance Specialist Relationship Specialty Start Date End Date Jett Loera MD [address] [place] [address] [place] [address] PCP - General Family Practice 02/22/23 Barbie Cartagena, DOUG Registered Nurse Pain Management 06/13/17 Leah Granda, DOUG Registered Nurse 10/31/17 Justin Sorensen MD [address] [facility] [place] [place] [address] Anesthesiologist Pain Management 05/07/22
--- OUTSIDE RECORDS SUMMARY | 2024-08-07 15:17 | XMS_ITS | Referral Summary ---
Author Organization [facility] Address [address] [place] [address] Care Team Providers Care Risk Assessment Analyst Name Role Phone Barbie Cartagena RN Unavailable Unavailab Leah Santos RN Unavailable Un available Justin Sorensen MD Unavailable [phone] Jett Loera MD Primary Care Provider [phone] Encounters Date Type Department Care Team Description 07/15/2024 1:53 PM FLOWER GROWER - 07/15/2024 11:59 PM FLOWER GROWER Hospital Encounter [facility] 2 [facility] [address], 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 09/23 PVC's [...] 023 Degenerative lumbar spinal stenosis 01/29/2019 05/08/2023 Social History Tobacco Use Types Packs/Day Years [...] on file Legal Sex Female 6:55 AM FLOWER GROWER Gender Identity Not on file Sexual Orientation Not on file Last Filed Vital Signs Vital Sign Reading Time Taken Comments Blood Pressure 136/82 07/15/2024 2:05 PM FLOWER GROWER Pulse 82 07/15/2024 2:05 PM FLOWER GROWER Temperature 36.3 C (97.3 F) 10/12/2020 11:22 AM CDT Respiratory Rate 18 07/15/2024 2:05 PM FLOWER GROWER Oxygen Saturation 98% 07/15/2024 2:05 PM FLOWER GROWER Inhaled Oxygen Concentration - - Weight 97.5 kg (215 lb) 02/22/2023 2:02 PM CDT Height 160 cm (5' 3 ) 02/22/2023 2:02 PM CDT Body Mass Index 38.09 02/22/2023 2:02 PM CDT Plan of Treatment Not on file Goals Goal Patient Goal Type Associated Problems Recent Progress Patient-Stated? Author -Pain Behavioral Health On track( 023 1:41 PM FLOWER GROWER) Carlie Craig RN Note: Patient will establish a comfort-function goal and identify the pain level that will allow the patient to perform desired activities and achieve an acceptable quality of life. [facility] Carlie Craig RN Medical Devices Implanted Type Area Candy Vendor Device Identifier Shelf Expiration Date Model / Serial / Lot Kit Stimulator Octrode L60 Cm Trial Lead Neurostimulator - [id number] Implanted:Qty: 2 on 06/05/2017 by Eddy Johns MD at [facility] N/A: Thoracic- Lumbar Spine [facility] 3086 / / Insurance MEDICARE [facility] MEDICARE [facility]IC[facility] Care Teams Risk Assessment Analyst Relationship Specialty Start Date End Date Jett Loera MD [address] [facility] [address] [place] [address] PCP - General Family Practice 02/22/23 Barbie Cartagena, RN Registered Nurse Pain Management 06/13/17 Leah Granda, RN Registered Nurse 10/31/17 Justin Sorensen MD [address] [facility] [address] [place] [address] Anesthesiologist Pain Management 05/07/22
--- OUTSIDE RECORDS SUMMARY | 2024-08-07 15:17 | XMS_ITS ---
Author Organization [facility] [employer] Address [address] [place] [address] Care Team Providers Care Dynamic Etching Processor Name Role Phone Thelma Jin APRN Primary Care Provider UnaShari Gonsales Unavailable [phone] REASON FOR VISIT Telehealth, Hx trauma Medications Medication SIG (Take, Route, Frequency, Duration) Notes Start Date End Date Status Sertraline HCl 50 MG 1 tablet Oral Once a day for 90 days Active lamoTRIgine 100 MG 1 tablet Oral twice a day for 90 days Active busPIRone HCl 10 MG 1 tablet Oral Twice a day for 90 days Active QUEtiapine Fumarate ER 150 MG 1 tablet i n the evening Oral Once a day for 90 days Active QUEtiapine Fumarate 400 MG 1 tablet ever y night Oral Once a day for 90 days Active Montelukast Sodium 10 MG TAKE 1 TABLET B Y MOUTH EVERY DAY Oral for 90 Days Active hydroCHLOROthiazide 25 MG TAKE ONE TABLE T BY MOUTH DAILY Oral for 90 Days Active Losartan Potassium 100 MG TAKE 1 TABLET BY MOUTH EVERY DAY Oral for 90 Days Active Carvedilol 12.5 MG TAKE ONE TABLET (12.5MG) BY MOUTH EVERY 12 HOURS MUST ADMINISTER WITH A MEAL/FOOD Oral for 90 Days Active Omeprazole 40 MG TAKE 1 CAPSULE BY MOUTH TWICE A DAY Oral for 90 Days Active Levothyroxine Sodium 88 MCG TAKE 1 TABLE T BY MOUTH EVERY DAY Oral for 90 Days Active Klayesta 551716 UNIT/GM APPLY TOPICALLY TWICE A DAY External for 30 Days Active Nystatin 123133 UNIT/GM APPLY TOPICALLY TWICE A DAY External for 30 Days Active Social History Tobacco Use: Social History [...] been since you last smoked? 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 Assessments Encounter Date Diagnosis (ICD Code) Assessment Notes Treatment Notes Treatment Clinical Notes Section Notes 03/25/2024 Post-traumatic stress disorder, unspecified (ICD-10 - F43.10) 03/25/2024 Bipolar disorder, current episode depressed, severe, without psychotic features (ICD-10 - F31.4) 03/25/2024 Conversion disorder with motor symptom or deficit (ICD-10 - F44.4) Plan Of Treatment Next Appt Details Follow Up: 2 Weeks, Reason: Provider Name:Theodore bhagat, 09/17/2024 01:30:00 PM, [address], [facility] [address], [place], [address], Progress Notes * TOMMY TEJEDADOB:1955 (68 yo F)Acc No.[id number]:03/25/2024 Patient: TOMMY NIEVES Provider: Henrry GALVAN LCSW :1955 A ge:68 Y S ex:Female Date:03/25/2024 Address:[facility] [address], [facility] Check In:03:10 PM CSTCheck O ut:04:21 PM RESAW TAILER Data: * Time Tracker: * Date Start Time End Time Duration User Type Captured By Mode Notes 03/25/2024 03:11 PM 04:17 PM 01:05:57 Therapist Shari Galvan er * Chief Complaints: * 1 . Telehealth. 2. Hx trauma. * HPI: H istory of Presenting Problem: Cl. reported stress because her cat has been ill.- possibly had granuloma- treated with steroid- cat now has UTI- medication is costly- C. is retired on a fixed income and paying for the [employer] services is anxiety inducing. She is still struggling with chronic back pain- difficult to get out of the house- takes days to recover. Cl's son has been helping with shopping and errands. Reported content with staying home and watching her television programs and coloring/tablet don't care if I do anything Only leaving the house to go to the local grocery store. She had previously kept a very clean house- now experiences feelings of worthlessness because she is unable to keep up with things now. During this session, clinician prompted Cl. to discuss and process feelings related to medical issues that have impact on mental health for purpose of gaining insight. Cl particpated actively- fair progress. M johanne depressive disorder: Depression started y ears ago, loss of interest and pleasure in most activities, and presented as, feeling sad and blue, Severity: moderate. A ssociated physical symptoms include a nxiety and restlessness, low energy level, Severity: moderate to severe. A dditional symptoms include d elusional thoughts of guilt or worthlessness, negativistic thinking, Severity: moderate to severe. * Medical History: P roblems: Bipolar affective disorder, current episode depression, Complicated grieving, Generalized anxiety disorder, Posttraumatic stress disorder, Primary insomnia, Psychologic conversion disorder, Tremor, ,. * Surgical History: T onsilectomy/adenoids 06/24/1970, Appendectomy (84188) 06/24/1975, Hysterectomy (03868) 06/24/1984, Removal of gallbladder (84460) 06/24/1984, Neurosurgery 06/24/2015. * Social History: T obacco Use: T obacco Control (Standard) T obacco use: F ormer smoker, W hen did you start smoking? 0 12/03/1970, W hen did you stop smoking? 1 07/25/2017, H ow long has it been since you last smoked? 5 -10 years. M igrated Social History: M igrated Social History: Alcohol Intake: None 06/07/2021,Tobacco Years: Former smoker 06/07/2021. * Medications: T aking Klayesta 316743 UNIT/GM Powder APPLY TOPICALLY TWICE A DAY External , Taking Levothyroxine Sodium 88 MCG Tablet TAKE 1 TABLET BY MOUTH EVERY DAY Oral , Taking Nystatin 207880 UNIT/GM Powder APPLY TOPICALLY TWICE A DAY [...] Tablet 1 tablet Oral Once a day * Vitals: * Examination: P sychiatry: A ppearance: Well groomed, appropriately dressed Affect: Congruent to mood Mood: Appropriate to discussion content Attitude: Cooperative Homicidal Ideation: None Suicidal Ideation: None Insight: Good Orientation: Alert, oriented x 3 Speech/language: Appropriate pitch/modulation, clear and coherent, normal rate, volume and articulation Thought Content: Appropriate Thought Process: Intact. Assessment: * Assessment: 1. P ost-traumatic stress disorder, unspecified - F43.10 (Primary) 2 . B ipolar disorder, current episode depressed, severe, without psychotic features - F31.4 ?3. C onversion disorder with motor symptom or deficit - F44.4 Plan: * Treatment: * Procedure Codes: 9 0837 PSYCHOTHERAPY W/PATIENT 60 MINUTES * Follow Up: 2 Weeks * Billing Information: * Visit Code: * Procedure Codes: 79599 PSYCHOTHERAPY W/PATIENT 60 MINUTES. * Sign off status: Completed Signatures: No Ad Hoc Signature Added true * Provider: Henrry GALVAN LCSW Date: Generated for Tiki roldan/Cristina/Hoda on: 0 08/07/2024 03:17 PM RESAW TAILER History and Physical Notes * HPI (History of Present Illness) Category Sub-Category Detail Notes Category Not es Major depressive disorder Associated physical symptoms include anxiety and restlessness, low energy level, Severity: moderate to severe Additional symptoms include delusional t houghts of guilt or worthlessness, negativistic thinking, Severity: moderate to severe Depression started years ago, loss of i nterest and pleasure in most activities, and presented as, feeling sad and blue, Severity: moderate History of Presenting Problem Cl. reported stress because her cat has been ill.- possibly had granuloma- treated with steroid- cat now has UTI- medication is costly- C. is retired on a fixed income and paying for the [employer] services is anxiety inducing. She is still struggling with chronic back pain- difficult to get out of the house- takes days to recover. Cl's son has been helping with shopping and errands. Reported content with staying home and watching her television programs and coloring/tablet don't care if I do anything Only leaving the house to go to the local grocery store. She had previously kept a very clean house- now experiences feelings of worthlessness because she is unable to keep up with things now. During this session, clinician prompted Cl. to discuss and process feelings related to medical issues that have impact on mental health for purpose of gaining insight. Cl particpated actively- fair progress Examination Category Sub-Category Detail Notes Category Not es Psychiatry Appearance: Well groomed, appropriately dressed Affect: Congruent to mood Mood: Appropriate to discussion content Attitude: Cooperative Homicidal Ideation: None Suicidal Ideation: None Insight: Good Orientation: Alert, oriented x 3 Speech/language: Appropriate pitch/modulation, clear and coherent, normal rate, volume and articulation Thought Content: Appropriate Thought Process: Intact
--- OUTSIDE RECORDS SUMMARY | 2024-08-07 15:17 | XMS_ITS ---
Author Organization [facility] [employer] [facility] Address [facility] [facility] [address] [place] [address] Care Team Providers Care Stove Installer Name Role Phone Thelma Jin APRN Primary Care Provider Unava liang Dow Shari Unavailable [phone] Theodore Wilson Unavailable [phone] Social History Sex Assigned At : Social History Observation Description Sex Assigned At Female Encounters Encounter Location Date Provider Diagnosis [facility] [email or web address] [place] [id number] [facility] [address] [place] [address] 07/14/2024 Theodore Wilson Plan Of Treatment Next Appt Details Provider Name:Theodore bhagat, 09/17/2024 01:30:00 PM, [address], [facility] [address], [place], [address], Progress Notes * TOMMY TEJEDADOB:1955 (69 yo F)Acc No.[id number]:07/14/2024 Patient: TOMMY NIEVES Provider: MARIO SANDOVAL :1955 A ge:68 Y S ex:Female Date:07/14/2024 Address:[facility] [address] [facility] Pcp:Thelma Jin APRN Subjective: * Chief Complaints: * * Medical History: Objective: * Vitals: Assessment: Plan: * Treatment: * Billing Information: * Visit Code: * Procedure Codes: * Electronic signature of MARIO Garcia on 08/07/2024 at 03:16 PM LABEL TACKER Sign off status: Pending * [facility] Date: 0 07/14/2024 Generated for Tiki roldan/Cristina/Hoda on: 0 08/07/2024 03:16 PM LABEL TACKER
== END 2024-08-07 15:13 | disposition home or self-care (01) ==
LOC: ANHIMG 15:15
PROVIDERS: PCP Nurse Practitioner Adult Health; Visit Provider Nurse Practitioner Adult Health
DX: Z12.31 Encounter for screening mammogram for malignant neoplasm of breast (principal)
CPT/HCPCS: 77063; 77067

== ENCOUNTER 2025-02-08 14:43 | Outpatient (CLI) | payer MEDICARE, OTHER, SELFPAY ==
--- NOTE | ~2025-02-08 | XR_ITS ---
EXAM/PROCEDURE: XR chest 2V - 02/08/2025 14:00 CDT HISTORY: 69 years old Female with R05.9 - Cough, unspecified TECHNIQUE: Two view(s) of the chest. COMPARISON: None available. FINDINGS: LUNGS/ PLEURA: No focal consolidation. No appreciable pneumothorax or large pleural effusion. HEART/ MEDIASTINUM: Heart appears normal in size. BONES: No acute osseous abnormality. OTHER: Visualized upper abdomen is unremarkable. IMPRESSION: No acute process. Reviewed, dictated and finalized at location A. IMPRESSION: No acute process.
--- OUTSIDE RECORDS SUMMARY | 2025-02-08 15:05 | XMS_ITS | Clinical Summary ---
Author Organization [facility] Address [address] [place] [address] Care Team Providers Care Communications Marketing Intern Name Role Phone Barbie Cartagena RN Unavailable Unavailab Leah Santos RN Unavailable Un available Justin Sorensen MD Unavailable [phone] Jett Loera MD Primary Care Provider [phone] Allergies Active Allergy Reactions Criticality Noted Date [...] tablet (100 mg total) by mouth Active cetirizine (ZyrTEC) 10 mg tablet Take [...] topically 4 (four) times a day Active prochlorperazin e (COMPAZINE) 10 mg tablet Take 1 tablet (10 mg total) by mouth every 6 (six) hours as needed for nausea or vomiting Active albuterol HFA (PROVENTIL HFA,VENTOLIN HFA,PROAIR HFA) 90 mcg/actuation inhaler Inhale 2 puffs every 6 (six) hours as needed for wheezing Active multivitamin capsule Take 1 capsule by mouth daily Active ergocalciferol (VITAMIN D) 50,000 unit capsule Take 1 capsule (50,000 Units total) by mouth every 30 (thirty) days Active quetiapine fumarate (QUETIAPINE ORAL) 400 mg 1 Active carvediloL (COREG) 12.5 mg tablet 12.5 MG ORALLY EVERY 12 HOURS MUST ADMINISTER WITH A MEAL/FOOD 3 Active quetiapine fumarate (QUETIAPINE ORAL) 150 mg 3 Active sertraline (ZOLOFT) 100 mg tablet Take 0.5 tablets (50 mg total) by mouth daily 3 Active hydroCHLOROthia zide (HYDRODIURIL) 25 mg tablet Take 1 tablet (25 mg total) by mouth daily 3 Active naloxone (NARCAN) 4 mg/actuation spray,non-aeros ol Administer 1 spray into affected nostril(s) as needed for opioid reversal 1 each 3 Active HYDROcodone-yolanda taminophen (NORCO) 10-325 mg per tabletIndicatio ns:Pain Take 1 tablet by mouth 4 (four) times a day as needed for pain 120 tablet 5 02/23/20 25 Active HYDROcodone-yolanda taminophen (NORCO) 10-325 mg per tabletIndicatio ns:Pain Take 1 tablet by mouth 4 (four) times a day as needed for pain 120 tablet 5 03/24/20 25 Active HYDROcodone-yolanda taminophen (NORCO) 10-325 mg per tabletIndicatio ns:Pain Take 1 tablet by mouth 4 (four) times a day as needed for pain 120 tablet 5 04/23/20 25 Active Active Problems Problem Noted Date Diagnosed Date Aortic valve regurgitation 03/29/2021 Mitral valve insufficiency 03/29/2021 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 (current) use of opiate analgesic 09/23 PVC's [...] Encounters Date Type Department Care Team Description 01/06/2025 1:50 PM CDT - 01/06/2025 11:59 PM CDT Hospital Encounter [facility] [address] [place] [id number] Arturo Aguilar MD Lumbar facet arthropathy Discharge Disposition: Discharge to home or self care from Last 3 Months Surgical History Surgery Date Site/Laterality Comments APPENDECTOMY KNEE SURGERY Medical History Medical History Date Comments Hypertension Thyroid disease Acid indigestion Cancer (HCC) Cataracts, bilateral Anxiety Arthritis History of [...] points, staff should administer the PHQ-9) 6 01/06/2025 PHQ-9 Answer Date Recorded PHQ-9 Total Score 15 01/06/2025 Comments No Sex and Gender Information Value Date Recorded Sex Assigned at Not on file Legal 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 Gender Identity Not on file Sexual Orientation Not on file Obstetrics History Last Filed Vital Signs Vital Sign Reading Time Taken Comments Blood Pressure 122/64 01/06/2025 2:09 PM CDT Pulse 56 01/06/2025 2:09 PM CDT Temperature 36.3 C (97.3 F) 10/12/2020 11:22 AM CDT Respiratory Rate 18 01/06/2025 2:09 PM CDT Oxygen Saturation 99% 01/06/2025 2:09 PM CDT Inhaled Oxygen Concentration - - Weight 90.3 kg (199 lb) 10/15/2024 1:28 PM CDT Height 160 cm (5' 3) 10/15/2024 1:28 PM CDT Body Mass Index 35.25 10/15/2024 1:28 PM CDT Plan of Treatment Health Maintenance Due Date Last Done Comments Breast Cancer Screening-Mammogram 1955 Colon Cancer Screening-Colonoscopy 1955 Fall Risk Assessment 1955 Hepatitis C Screening 1955 Osteoporosis Screening-Bone Density Scan 1955 DTaP/Tdap/Td Vaccine (1 - Tdap) 1967 Hepatitis B Screening 1974 Pneumococcal vaccine 65+ (1 of 2 - PCV) 1975 Zoster Vaccine (1 of 2) 2006 Well Visit 65+ 2021 Influenza Vaccine (#1) 2025 8, 03/15/2017, 04/07/2016, Additional history exists Depression Screening 01/06/2026 01/06/2025, 01/06/2025, 10/14/2024, Additional history exists Goals Goal Patient Goal Type Associated Problems Recent Progress Patient-Stated? 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 -Pain Behavioral [facility] Carlie Brumfield RN Medical Devices Implanted Type Area Automotive Salesperson Device Identifier Shelf Expiration Date Model / Serial / Lot Kit Stimulator Octrode L60 Cm Trial Lead Neurostimulator - [id number] Implanted:Qty: 2 on 06/05/2017 by Eddy Johns MD at [facility] N/A: Thor[facility]- Lumbar Spine [facility] / / Insurance MEDICARE [facility] MEDICARE [facility] [place] [facility] [place] Care Teams Communications Marketing Intern Relationship Specialty Start Date End Date Jett Loera MD [address] [place] [address] [place] [id number] PCP - General Family Practice 02/22/23 Barbie Cartagena, RN Registered Nurse Pain Management 06/13/17 Leah Granda, RN Registered Nurse 10/31/17 Justin Sorensen MD [address] [place] [address] [place] [id number] Anesthesiologist Pain Management 05/07/22
--- OUTSIDE RECORDS SUMMARY | 2025-02-08 15:05 | XMS_ITS | Clinical Summary ---
Author Organization [facility] Address [address], [facility] [address] [place] [address] Phone Care Team Providers Care Nuclear Physicist Name Role Phone Eber Garcia DO Primary Care Provider [phone]- [phone] Allergies Active Allergy Reactions Criticality Noted Date Comments Amoxicillin Anaphylaxis,Swelling ,Other (see Comments) High 03/14/2016 Morphine Other (see Comments) Medium 08/27/2018 HEADACHE Tetracycline Anaphylaxis,Swelling ,Other (see Comments) High 03/14/2016 Medications aspirin EC 81 MG Tablet Delayed Response Take 81 mg by mouth every morning. Active chlorthalidone (HYGROTON) 50 MG Tablet Take 50 mg by mouth daily. Active losartan (COZAAR) 100 MG Tablet Take 100 mg by mouth nightly. Active metoprolol tartrate (LOPRESSOR) 50 MG Tablet Take 50 mg by mouth nightly. Active montelukast (SINGULAIR) 10 MG Tablet Take 10 mg by mouth every evening. Active omeprazole (PRILOSEC) 40 MG CAPSULE DELAYED RELEASE Take 40 mg by mouth 2 times daily. Active primidone (MYSOLINE) 250 MG Tablet Take 250 mg by mouth 3 times daily. Active topiramate (TOPAMAX) 100 MG Tablet Take 100 mg by mouth nightly. Active traZODone (DESYREL) 100 MG Tablet Take 200 mg by mouth nightly. Active escitalopram (LEXAPRO) 10 MG Tablet Take 20 mg by mouth every morning. Active Melatonin 10 MG Capsule Take 10 mg by mouth nightly. Active lamoTRIgine (LAMICTAL) 150 MG TabletIndication s:Mood Take by mouth 2 times daily. Indications: Mood Active buPROPion (WELLBUTRIN) 300 MG TABLET SR 24 HR XL tablet Take 300 mg by mouth every morning. Active levothyroxine (SYNTHROID) 88 MCG Tablet Take 88 mcg by mouth every morning. Active cetirizine (ZYRTEC ALLERGY) 10 MG Tablet Take 10 mg by mouth every morning. Active ondansetron (ZOFRAN ODT) 4 MG TABLET DISPERSIBLE Take 1 Tab by mouth every 8 hours as needed for Nausea - 1st line. 10 Tab 9 Active Additional Information Patient not taking.Reported on 01/06/2020 prochlorperazine (COMPAZINE) 5 MG Tablet Take 1 Tab by mouth every 6 hours as needed for Nausea - 2nd line. 30 Tab 1 9 Active Additional Information Patient taking differently: 10 mgOral EVERY 6 HOURS PRN, Nausea - 2nd line, Reported on 11/15/2018 modafinil (PROVIGIL) 200 MG Tablet Take 400 mg by mouth every morning. Active CARBIDOPA-LEVODO PA PO Take 1 Tab by mouth 3 times daily. Active busPIRone (BUSPAR) 10 MG Tablet Take 10 mg by mouth 2 times daily. Active LORazepam (ATIVAN) 0.5 MG Tablet Take 0.5 mg by mouth 3 times daily as needed. Active omeprazole (PRILOSEC) 40 MG CAPSULE DELAYED RELEASE Take 1 Cap by mouth 2 times daily. 180 Cap 3 0 Active Additional Information Patient not taking.Reported on 01/06/2020 Family History Medical History Relation Name Comments Emphysema Father Heart Disease Father Dementia Maternal Aunt Dementia Maternal Uncle Stomach Cancer Maternal Uncle Emphysema Mother Colon Cancer Other aunt Colon Cancer Paternal Aunt Relation Name Status Comments Father Maternal Aunt x 2 Maternal Uncle x 4 Mother Other aunt Paternal Aunt Social History Tobacco Use Types Packs/Day Years Used Date Smoking Tobacco: Former Cigarettes 1 47 1 07/1968 - 05/2016 Smokeless Tobacco: Never Alcohol Use Standard Drinks/Week Comments No 0 (1 standard drink = 0.6 oz pur e alcohol) PHQ-2 Answer Date Recorded PHQ-2 Score 0 03/07/2019 Comments No Sex and Gender Information Value Date Recorded Sex Assigned at Not on file Legal Sex Female 8:06 PM CDT Gender Identity Not on file Sexual Orientation Not on file Last Filed Vital Signs Vital Sign Reading Time Taken Comments Blood Pressure 170/80 06/29/2019 11:54 AM SQUEEGEER AND FORMER Pulse 58 06/29/2019 10:11 AM SQUEEGEER AND FORMER Temperature 36 C (96.8 F) 06/29/2019 11:54 AM SQUEEGEER AND FORMER Respiratory Rate 10 06/29/2019 11:54 AM SQUEEGEER AND FORMER Oxygen Saturation 96% 06/29/2019 11:54 AM SQUEEGEER AND FORMER Inhaled Oxygen Concentration - - Weight 80.3 kg (177 lb) 01/06/2020 3:00 PM CDT Height 160 cm (5' 3) 01/06/2020 3:00 PM CDT Body Mass Index 31.35 01/06/2020 3:00 PM CDT Plan of Treatment Health Maintenance Due Date Last Done Comments Hepatitis C Virus (HCV) Screening 1955 TdaP Immunization 1955 Cologuard 2001 Immunochemical Fecal Occult Blood 2001 Pneumococcal Immunization (50+ years) (1 of 1 - PCV) 2006 Zoster Immunization (1 of 2) 2006 Respiratory Syncytial Virus (RSV) Immunization (Adult) (1 - Risk 60-74 years 1-dose series) 2016 Colonoscopy 06/29/2020 06/29/2019, 11/2018, 05/08/2013 Colorectal Cancer Screening 06/29/2020 SARS-COV-2 Immunization ( season) 2024 05/02/2021, 09/01/2020 Influenza Immunization (#1) 02/22/202502/23, 03/15/2017, 04/07/2016, Additional history exists Hepatitis B Immunization Aged Out No longer eligible based on patient's age to complete this topic Human Papillomavirus (HPV) Immunization Aged Out No longer eligible based on patient's age to complete this topic Meningococcal Immunization (ACWY) Aged Out No longer eligible based on patient's age to complete this topic Rotavirus Immunization Aged Out No lo nger eligible based on patient's age to complete this topic Medical Devices Implanted Type Area Showcase Trimmer Device Identifier Shelf Expiration Date Model / Serial / Lot Clip 360 Resolution 235cm - [id number] Implanted:Qty: 2 on 06/29/2019 by Gregorio Gonzalez, at [facility] IMPLANT [employer] 02/13/2022 [id number] / [id number] / [id number] Clip 360 Resolution 235cm - [id number] Implanted:Qty: 3 on 06/29/2019 by Gregorio Gonzalez, DO at [facility] IMPLANT [employer] 10/19/2021 [id number] / [id number] / [id number] Procedures Procedure Name Priority Date/Time Associated Diagnosis Comments COLONOSCOPY Routine 05/08/2013 from Last 3 Months or Most Recently Relevant to Health Maintenance Results * COLONOSCOPY (05/08/2013) us Not On File Provider PROCEDURE/MINOR SURGICAL OR DERABLES Final Result from Last 3 Months or Most Recently Relevant to Health Maintenance Insurance MEDICARE [facility] Care Teams Nuclear Physicist Relationship Specialty Start Date End Date Eber Garcia DO [address] [id number] PCP - General Family Medicine 07/15/18
--- OUTSIDE RECORDS SUMMARY | 2025-02-08 15:05 | XMS_ITS | Encounter Summary ---
Author Organization [facility] Address [address] [place] [address] Phone Care Team Providers Care Power Switchboard Operator Name Role Phone Eber Garcia Henrry RAGSDALE Primary Care Provider [phone]- [phone] Reason for Visit * Reason Comments Medication Refill Encounter Details Date Type Department Care Team (Late st Contact Info) Description 12/22/2020 Refill [facility] - Gastroenterology [facility] [address] [place] [id number] Gregorio Gonzalez, [address] [place] [address] [place] [address] Medication Refill Social History Tobacco Use Types Packs/Day Years [...] on file Sexual Orientation Not on file documented as of this encounter Miscellaneous Notes * Telephone Encounter - Maricarmen Arias CMA - 12/22/2020 11:35 AM CDT Patient was notified 01/04/2020 that future refills were to go through her primary care doctor. 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
--- OUTSIDE RECORDS SUMMARY | 2025-02-08 15:44 | XMS_ITS | Clinical Summary ---
Author Organization [facility] Address [address], [facility] [address] [place] [address] Phone Care Team Providers Care Code Enforcement Supervisor Name Role Phone Eber Garcia DO Primary Care Provider [phone]- [phone] Allergies Active Allergy Reactions Criticality Noted Date [...] Comments Blood Pressure 170/80 06/29/2019 11:54 AM R[place]ON Pulse 58 06/29/2019 10:11 AM [place] Temperature 36 C (96.8 F) 06/29/2019 11:54 AM [place] Respiratory Rate 10 06/29/2019 11:54 AM [place] Oxygen Saturation 96% 06/29/2019 11:54 AM R[place] Inhaled Oxygen Concentration - - Weight 80.3 [...] this topic Medical Devices Implanted Type Area Overlock Sewing Machine Operator Device Identifier Shelf Expiration Date Model / Serial / Lot Clip 360 Resolution 235cm - [id number] Implanted:Qty: 2 on 06/29/2019 by Gregorio Gnozalez, at [facility] IMPLANT [employer] 02/13/2022 [id number] / [id number] / [id number] Clip 360 Resolution 235cm - [id number] Implanted:Qty: 3 on 06/29/2019 by Gregorio Gonzalez, DO at [facility] IMPLANT [employer] 10/19/2021 [id number] / [id number] / [id number] Procedures Procedure Name Priority Date/Time Associated Diagnosis Comments COLONOSCOPY Routine 05/08/2013 from Last 3 Months or Most Recently Relevant to Health Maintenance Results * COLONOSCOPY (05/08/2013) us Not On File Provider PROCEDURE/MINOR SURGICAL OR DERABLES Final Result from Last 3 Months or Most Recently Relevant to Health Maintenance Insurance MEDICARE [email or web address]] Care Teams Code Enforcement Supervisor Relationship Specialty Start Date End Date Eber Garcia DO [address] [id number] PCP - General Family Medicine 07/15/18
--- OUTSIDE RECORDS SUMMARY | 2025-02-08 15:44 | XMS_ITS | Clinical Summary ---
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 -Pain Behavior[facility] Carlie Brumfield RN Medical Devices Implanted Type Area Enterprise Software Engineer Device Identifier Shelf Expiration Date Model / Serial / Lot Kit Stimulator Octrode L60 Cm Trial Lead Neurostimulator - [id number] Implanted:Qty: 2 on 06/05/2017 by Eddy Johns MD at [facility] N/A: Thoracic- [facility]bar Spine [facility] / / Insurance MEDICARE [facility] MEDICARE [facility] MEDICARE [facility] [place] Care Teams Tag Meter Operator Relationship Specialty Start Date End Date Jett Loera MD [address] [facility] [address] [place] [id number] PCP - General Family Practice 02/22/23 Barbie Cartagena, RN Registered Nurse Pain Management 06/13/17 Leah Granda, RN Registered Nurse 10/31/17 Justin Sorensen MD [address] [facility] [address] [place] [address] Anesthesiologist Pain Management 05/07/22
--- OUTSIDE RECORDS SUMMARY | 2025-02-08 15:44 | XMS_ITS | Encounter Summary ---
Author Organization [facility] Address [address] 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
== END 2025-02-08 14:44 | disposition home or self-care (01) ==
LOC: ANHBWCIMG 14:44
PROVIDERS: PCP Nurse Practitioner Adult Health; Visit Provider Nurse Practitioner Adult Health
DX: R05.9 Cough, unspecified (principal); E55.9 Vitamin D deficiency, unspecified; E53.8 Deficiency of other specified B group vitamins; I10 Essential (primary) hypertension; N39.0 Urinary tract infection, site not specified; R94.6 Abnormal results of thyroid function studies; E03.9 Hypothyroidism, unspecified
CPT/HCPCS: 71046

== ENCOUNTER 2025-02-09 13:21 | Outpatient (CLI) | payer MEDICARE, OTHER, SELFPAY ==
--- OUTSIDE RECORDS SUMMARY | 2025-02-01 08:30 | XMS_ITS ---
Author Organization [facility] [place] [facility] Address [address] [place] [address] Care Team Providers Care Business Services Director Name Role Phone Thelma Jin APRN Primary Care Provider Theodore Perez Unavailable [phone] Allergies Allergen (clinical drug ingredient) Drug/Non Drug Allergy documented on EMR Reaction Allergy Type Onset Date Status amoxicillin Amoxicillin Unknown Drug Allergy 02/07/2022 Ac tive tetracycline Tetracycline Unknown Drug Allergy 02/07/2022 Active REASON FOR VISIT follow-up Medications Medication SIG (Take, Route, Frequency, Duration) Notes Start Date End Date Status Carvedilol 12.5 MG Tablet TAKE ONE TABLE T (12.5MG) BY MOUTH EVERY 12 HOURS MUST ADMINISTER WITH A MEAL/FOOD Oral; Duration: 90 Days Active QUEtiapine Fumarate ER 300 M G Tablet Extended Release 24 Hour 1 tablet in the evening Oral Once a day; Duration: 30 days Active QUEtiapine Fumarate 400 MG Tablet TAKE ONE TABLET BY MOUTH EVERY NIGHT; Duration: 90 Active Sertraline HCl 50 MG Tablet TAKE 1 TABLE T BY MOUTH EVERY DAY FOR 90 DAYS; Duration: 90 Active QUEtiapine Fumarate ER 150 M G Tablet Extended Release 24 Hour 1 tablet Oral twice a day; Duration: 90 days Active Sertraline HCl 50 MG Tablet 1 tablet Ora l Once a day; Duration: 90 days Active hydroCHLOROthiazide 25 MG Tablet TAKE ONE TABLET BY MOUTH DAILY Oral; Duration: 90 Days Active Losartan Potassium 100 MG Tablet TAKE 1 TABLET BY MOUTH EVERY DAY Oral; Duration: 90 Days Active Omeprazole 40 MG Capsule Delayed Release TAKE 1 CAPSULE BY MOUTH TWICE A DAY Oral; Duration: 90 Days Active Montelukast Sodium 10 MG Tablet TAKE 1 T ABLET BY MOUTH EVERY DAY Oral; Duration: 90 Days Active QUEtiapine Fumarate ER 300 M G Tablet Extended Release 24 Hour 1 tablet Oral Once a day; Duration: 90 days Active Klayesta 605793 UNIT/GM Powder APPLY TOP ICALLY TWICE A DAY External; Duration: 30 Days Active Nystatin 201081 UNIT/GM Powder APPLY TOP ICALLY TWICE A DAY External; Duration: 30 Days Active Levothyroxine Sodium 88 MCG Tablet TAKE 1 TABLET BY MOUTH EVERY DAY Oral; Duration: 90 Days Active QUEtiapine Fumarate 400 MG Tablet 1 tablet every night Oral Once a day; Duration: 90 days Active lamoTRIgine 100 MG Tablet 1 tablet Oral twice a day; Duration: 90 days Active busPIRone HCl 10 MG Tablet 1 tablet Oral Twice a day; Duration: 90 days Active Social History Tobacco Use: Social History Observation Description Date Details (start date - stop date) Former Smoker 12/03/1970 - 05/24/2018 Sex Assigned At : Social History Observation Description Sex Assigned At Female Social History Miscellaneous: Social Info Question Answer Notes Advance Care Planning Are you your own decision-maker Yes Do you have Power of [employer] for Health or [facility]? No Advance Directive Living Will Tobacco Use: Social Info Question Answer Notes Tobacco Control (Standard) Tobacco use: Former smoker When did you start smoking? 12/03/1970 When did you stop smoking? 05/24/2018 How long has it been since you last smoked? 5-10 years Additional Details Category Social Info Options Details Migrated Social History Migrated Social History Alcohol Intake: None 06/07/2021,Tobacco Years: Former smoker 06/07/2021 Vital Signs Blood pressure systolic 110 mm Hg 02/02/20 25 Blood pressure diastolic 75 mm Hg 025 Heart Rate 80 /min 02/01/2025 Height 64.00 in 02/01/2025 Weight 195 lbs 02/01/2025 BMI 33.47 kg/m2 02/01/2025 Height-cm 162.56 cm 02/01/2025 Weight-kg 88.45 kg 02/01/2025 Encounters Encounter Location Date Provider Diagnosis [facility] [employer] [facility] [address] [place] [id number] 02/01/2025 Theodore Wilson Bipolar disorder, current episode depressed, severe, without psychotic features F31.4 ; Primary insomnia F51.01 ; Post-traumatic stress disorder, unspecified F43.10 and Generalized anxiety disorder F41.1 Assessments Encounter Date Diagnosis (ICD Code) Assessment Notes Treatment Notes Treatment Clinical Notes Section Notes 02/01/2025 Bipolar disorder, current episode depressed, severe, without psychotic features (ICD-10 - F31.4) 02/01/2025 Primary insomnia (ICD-10 - F51.01) 02/01/2025 Post-traumatic stress disorder, unspecified (ICD-10 - F43.10) 02/01/2025 Generalized anxiety disorder (ICD-10 - F41.1) Plan Of Treatment Medication Medication Name Sig Start Date Stop Date Notes Sertraline HCl 50 MG Tablet 1 tablet Ora l Once a day; Duration: 90 days QUEtiapine Fumarate ER 300 M G Tablet Extended Release 24 Hour 1 tablet Oral Once a day; Duration: 90 days QUEtiapine Fumarate 400 MG Tablet 1 tablet every night Oral Once a day; Duration: 90 days lamoTRIgine 100 MG Tablet 1 tablet Oral twice a day; Duration: 90 days busPIRone HCl 10 MG Tablet 1 tablet Oral Twice a day; Duration: 90 days Next Appt Details Follow Up: 3 Months, Reason: f/u bipolar d/o Provider Name:Theodore bhagat, 04/26/2025 02:00:00 PM, [address], [facility] [address], [place], [address], History and Physical Notes * HPI (History of Present Illness) Category Sub-Category Detail Notes Category Not es History of Presenting Problem Anxiety Onset: years ago Depression screening done advance care planning discuss Depression Onset: years ago, As sociated Symptoms: fatigue, no interest in things Mood lability bipolar d/o Psychotherapy has done in the past Depression screening PHQ-9 Little inte rest or pleasure in doing things: Nearly every day Feeling down, depressed, or hopeless: Mo re than half the days Trouble falling or staying a sleep, or sleeping too much: More than half the days Feeling tired or having little energy: M ore than half the days Poor appetite or overeating: More than h bill the days Feeling bad about yourself o r that you are a failure, or have let yourself or your family down: More than half the days Trouble concentrating on thi ngs, such as [...] Screening Findings: P ositve Follow-Up for Depression: [facility] health care management, Psychiatric follow-up Suicide Risk Assessment Performed: 02/01 __ date Functional Status Functional Status Assessment D ate of last completed Functional Status Assessment:: 02/01/2025 Fall Risk Assessment:: No falls in the p ast year Depression Screening FRANCISCO-7 (2018 Edition) Feelin g nervous, anxious, or on edge: More than half the days Not being able to stop or control worryi ng: Nearly every day Worrying too much about different things : Nearly every day Trouble relaxing: More than half the day s Being so restless that it is hard to sit still: Not at all Becoming easily annoyed or irritable: Mo re than half the days Total FRANCISCO-7 Score: 12 Interpretation of Total: (10 to 14) Mode rate [place]-Suicide Severity Rating Scale Suicide Risk (CSRS-screener) in [...] no impairment noted Delusions: no Hallucinations: no Progress Notes * TOMMY TEJEDADOB:1955 (69 yo F)Acc No.[id number]:02/01/2025 Patient: TOMMY NIEVES Provider: MARIO SANDOVAL :1955 A ge:69 Y S ex:Female Date:02/01/2025 Address:[address] [place], [place] [address] , [place] [id number] Pcp:Thelma Jin APRN Subjective: * Chief Complaints: * F ollow-up * HPI: H istory of Presenting Problem: Anxiety O nset: years ago. Depression O nset: years ago, A ssociated Symptoms: fatigue, no interest in things. Mood lability b ipolar d/o. Psychotherapy h as done in the past. Depression screening doneadvance care planning discuss. D epression Screening: FRANCISCO-7 (2018 Edition) F eeling nervous, anxious, or on edge M ore than half the days N ot being able to stop or control worrying?Nearly every day W orrying too much about different things N early every day T rouble relaxing M ore than half the days B eing so restless that it is hard to sit still N ot at all B ecoming easily annoyed or irritable M ore than half the days T otal FRANCISCO-7 Score 1 2 I nterpretation of Total ( 10 to 14) Moderate [place]-Suicide Severity Rating Scale: Suicide Risk (CSRS-screener) i n the past one month Have you wished you were or wished you could go to sleep and not wake up? N o i n the past one month Have you actually had any thoughts of killing yourself? N o H ave you ever done anything, started to do anything, or prepared to do anything to end your life? N o D epression screening: PHQ-9 L ittle interest or pleasure in doing things?Nearly every day F eeling down, depressed, or hopeless M ore than half the days T rouble falling or staying asleep, or sleeping too much M ore than half the days F eeling tired or having little energy M ore than half the days P oor appetite or overeating M ore than half the days F eeling bad about yourself or that you are a failure, or have let yourself or your family down M ore than half the days T rouble concentrating on things, such as reading the newspaper or watching television M ore than half the days M oving or speaking so slowly that other people could have noticed; or the opposite, being so fidgety or restless that you have been moving around a lot more than usual N ot at all T houghts that you would be better off or of hurting yourself in some way N ot at all T otal Score 1 5 I nterpretation M oderately Severe Depression Intervention D epression Screening Findings P ositve F ollow-Up for Depression M ental health care management, Psychiatric follow-up S uicide Risk Assessment Performed 0 02/01/2025 __ date F unctional Status: Functional Status Assessment D ate of last completed Functional Status Assessment: 0 02/01/2025 F all Risk Assessment: N o falls in the past year P ast Medication history: belsomra, trazodone,lunesta, rozerem. * Medical History: Problems: Bipolar affective disorder, current episode depression Complicated grieving Generalized anxiety disorder Posttraumatic stress disorder Primary insomnia Psychologic conversion disorder Tremor , Imported from [employer]lights: On July 15, 2024, the patient had a hospital encounter at [facility], overseen by Sandra Live NP. The patient's ongoing conditions include long-term use of opiate analgesic, lumbar facet arthropathy, and lumbar post-laminectomy syndrome. The patient's use of opiate analgesics indicates chronic pain management, likely due to the lumbar conditions. Lumbar facet arthropathy and post-laminectomy syndrome suggest the patient has had spinal surgery in the past and is experiencing ongoing back issues. Imported from [employer]: On 07/15/2024, the patient was seen by Sandra Live NP at [facility] for long-term use of opiate analgesics, lumbar facet arthropathy, and lumbar post-laminectomy syndrome. This was followed by another hospital encounter on 10/14/2024 with Sandra Live NP, addressing the continued use of opiate analgesics and lumbar post-laminectomy syndrome. The next day, 10/15/2024, an office visit with Kalie Mccall MD at [facility] included hypertension, lipid screening, and palpitations. On 01/06/2025, Arturo Aguilar MD at [facility] treated the patient for lumbar facet arthropathy. Earlier, on 04/22/2024, Sandra Live NP at [facility] had managed lumbar post-laminectomy syndrome and lumbar radiculopathy. Medical History Verified * Social History: T obacco Use: T obacco Control (Standard) T obacco use: F ormer smoker W hen did you start smoking? 0 12/03/1970 W hen did you stop smoking? 1 07/25/2017 H ow long has it been since you last smoked??5-10 years M igrated Social History: M igrated Social History: Alcohol Intake: None 06/07/2021,Tobacco Years: Former smoker 06/07/2021. M iscellaneous: A dvance Care Planning A re you your own decision-maker Y es D o you have Power of [employer] for Health or Medical? N o A dvance Directive L iving Will S ocial History Verified. * Medications: T akingKlayesta 611884 UNIT/GM Powder APPLY TOPICALLY TWICE A DAY External Levothyroxine Sodium 88 MCG Tablet TAKE 1 TABLET BY MOUTH EVERY DAY Oral Nystatin 787516 UNIT/GM Powder APPLY TOPICALLY TWICE A DAY External Montelukast Sodium 10 MG Tablet TAKE 1 TABLET BY MOUTH EVERY DAY Oral Losartan Potassium 100 MG Tablet TAKE 1 TABLET BY MOUTH EVERY DAY Oral hydroCHLOROthiazide 25 MG Tablet TAKE ONE TABLET BY MOUTH DAILY Oral Omeprazole 40 MG Capsule Delayed Release TAKE 1 CAPSULE BY MOUTH TWICE A DAY Oral Carvedilol 12.5 MG Tablet TAKE ONE TABLET (12.5MG) BY MOUTH EVERY 12 HOURS MUST ADMINISTER WITH A MEAL/FOOD Oral QUEtiapine Fumarate ER 300 MG Tablet Extended Release 24 Hour 1 tablet in the evening Oral Once a day busPIRone HCl 10 MG Tablet 1 tablet Oral Twice a day lamoTRIgine 100 MG Tablet 1 tablet Oral twice a day QUEtiapine Fumarate 400 MG Tablet TAKE ONE TABLET BY MOUTH EVERY NIGHT Sertraline HCl 50 MG Tablet TAKE 1 TABLET BY MOUTH EVERY DAY FOR 90 DAYS QUEtiapine Fumarate ER 150 MG Tablet Extended Release 24 Hour 1 tablet Oral twice a day Medication List reviewed and reconciled with the patientTaking Klayesta 947842 UNIT/GM Powder APPLY TOPICALLY TWICE A DAY External Taking Levothyroxine Sodium 88 MCG Tablet TAKE 1 TABLET BY MOUTH EVERY DAY Oral Taking Nystatin 399524 UNIT/GM Powder APPLY TOPICALLY TWICE A DAY External Taking Montelukast Sodium 10 MG Tablet TAKE 1 TABLET BY MOUTH EVERY DAY Oral Taking Losartan Potassium 100 MG Tablet TAKE 1 TABLET BY MOUTH EVERY DAY Oral Taking hydroCHLOROthiazide 25 MG Tablet TAKE ONE TABLET BY MOUTH DAILY Oral Taking Omeprazole 40 MG Capsule Delayed Release TAKE 1 CAPSULE BY MOUTH TWICE A DAY Oral Taking Carvedilol 12.5 MG Tablet TAKE ONE TABLET (12.5MG) BY MOUTH EVERY 12 HOURS MUST ADMINISTER WITH A MEAL/FOOD Oral Taking QUEtiapine Fumarate ER 300 MG Tablet Extended Release 24 Hour 1 tablet in the evening Oral Once a day Taking busPIRone HCl 10 MG Tablet 1 tablet Oral Twice a day Taking lamoTRIgine 100 MG Tablet 1 tablet Oral twice a day Taking QUEtiapine Fumarate 400 MG Tablet TAKE ONE TABLET BY MOUTH EVERY NIGHT Taking Sertraline HCl 50 MG Tablet TAKE 1 TABLET BY MOUTH EVERY DAY FOR 90 DAYS Taking QUEtiapine Fumarate ER 150 MG Tablet Extended Release 24 Hour 1 tablet Oral twice a day Medication List reviewed and reconciled with the patient * Allergies: A moxicillin: Allergy - Onset Date 02/07/2022Tetracycline: Allergy - Onset Date 02/07/2022yesAllergies Verified. Objective: * Vitals: B P:110/75mm Hg, HR:80/min, Wt:195lbs, Wt-k.45 kg, Ht: 64.00 in, Ht-cm: 162.56 cm, BMI:33.47Index, Body Surface Area: 2. * Examination: P sychiatry: Appearance: w ell-groomed, [...] 90 Tablet, Refills 1.? * Procedure Codes: 9 6127 BEHAV ASSMT W/SCORE & DOCD/STAND [id number] TOBACCO NON-USER * Preventive Medicine: Counseling: A dvance Care Planning Date of last Advance Care Planning:?02/01/2025 ____ MIPS Type of advance care directives: D iscussed with patient , does not have AD,Living Will Screenings: D epression screening Have you had a recent depression screening? Y es * Follow Up: 3 Months (Reason: f/u bipolar d/o) Billing Information: * Visit Code: 23734 OFFICE OUTPATIENT VISIT 25 MINUTES DETAILED HISTORY AND EXAM/MODERATE MEDICAL DECISION MAKING. * Procedure Codes: 00023 BEHAV ASSMT W/SCORE & DOCD/STAND INSTRUMENT. 1036F TOBACCO NON-USER. * Electronic signature of MARIO Garcia on 02/09/2025 at 01:46 PM CDT Sign off status: Pending * Provider: MARIO SANDOVAL Date: 02/01/2025 Generated for Tiki roldan/Cristina/Orionsmaubrey on: 02/09/2025 01:46 PM CDT
--- OUTSIDE RECORDS SUMMARY | 2025-02-09 13:46 | XMS_ITS | Patient Health Record ---
Author Organization [facility] Address [address] [place] [address] Care Team Providers Care Recycling Tech Name Role Phone Thelma Jin APRN Primary Care Provider Theodore Preez Unavailable [phone] Shari Dow Unavailable [phone] Allergies Allergen (clinical drug ingredient) Drug/Non Drug Allergy documented on EMR Reaction Allergy Type Onset Date Status amoxicillin Amoxicillin Unknown Drug Allergy 02/07/2022 Ac tive tetracycline Tetracycline Unknown Drug Allergy 02/07/2022 Active Reason For Referral No Information Medications Medication SIG (Take, Route, Frequency, Duration) Notes Start Date End Date Status Montelukast Sodium 10 MG Tablet TAKE 1 T ABLET BY MOUTH EVERY DAY Oral; Duration: 90 Days Active QUEtiapine Fumarate ER 150 M G Tablet Extended Release 24 Hour 1 tablet Oral twice a day; Duration: 90 days Active Sertraline HCl 50 MG Tablet 1 tablet Ora l Once a day; Duration: 90 days Active hydroCHLOROthiazide 25 MG Tablet TAKE ONE TABLET BY MOUTH DAILY Oral; Duration: 90 Days Active QUEtiapine Fumarate ER 300 M G Tablet Extended Release 24 Hour 1 tablet Oral Once a day; Duration: 90 days Active Losartan Potassium 100 MG Tablet TAKE 1 TABLET BY MOUTH EVERY DAY Oral; Duration: 90 Days Active Carvedilol 12.5 MG Tablet TAKE ONE TABLE T (12.5MG) BY MOUTH EVERY 12 HOURS MUST ADMINISTER WITH A MEAL/FOOD Oral; Duration: 90 Days Active Omeprazole 40 MG Capsule Delayed Release TAKE 1 CAPSULE BY MOUTH TWICE A DAY Oral; Duration: 90 Days Active QUEtiapine Fumarate ER 300 M G Tablet Extended Release 24 Hour 1 tablet in the evening Oral Once a day; Duration: 30 days Active Klayesta 812570 UNIT/GM Powder APPLY TOP ICALLY TWICE A DAY External; Duration: 30 Days Active QUEtiapine Fumarate 400 MG Tablet TAKE ONE TABLET BY MOUTH EVERY NIGHT; Duration: 90 Active lamoTRIgine 100 MG Tablet 1 tablet Oral twice a day; Duration: 90 days Active Nystatin 084542 UNIT/GM Powder APPLY TOP ICALLY TWICE A DAY External; Duration: 30 Days Active busPIRone HCl 10 MG Tablet 1 tablet Oral Twice a day; Duration: 90 days Active Levothyroxine Sodium 88 MCG Tablet TAKE 1 TABLET BY MOUTH EVERY DAY Oral; Duration: 90 Days Active Sertraline HCl 50 MG Tablet TAKE 1 TABLE T BY MOUTH EVERY DAY FOR 90 DAYS; Duration: 90 Active QUEtiapine Fumarate 400 MG Tablet 1 tablet every night Oral Once a day; Duration: 90 days Active Immunizations Vaccine Route Administration Date Status Comme nts Influenza virus vaccine, quadrivalent (IIV4), split virus, 0.25 mL dosage Unknown 03/21/2018 Administered Influenza, injectable, MDCK, preservative free Unknown 03/15/2017 Administered Influenza, seasonal, injecta ble, preservative free, 3 yrs and above Unknown 03/27/2013 Administered [place]urel Covid-19 Vaccine Unknown 09/01/2020 Administere d Novel [id number], preservative free Unknown 04/07/2016 Administered Pfizer Biontech Covid-19 Vac cine 2nd dose Unknown 05/02/2021 Administered Pfizer-Biontech Covid-19 Vac cine 1st dose Unknown 03/06/2022 Administered Social History Tobacco Use: Social History Observation Description Date Details (start date - stop date) Former Smoker 12/03/1970 - 05/24/2018 Sex Assigned At : Social History Observation Description Sex Assigned At Female Social History Miscellaneous: Social Info Question Answer Notes Advance Care Planning Are you your own decision-maker Yes Do you have Power of [employer] Paraprofessional for Health or [facility]? No Advance Directive Living Will Tobacco Use: Social Info Question Answer Notes Tobacco Control (Standard) Tobacco use: Former smoker When did you start smoking? 12/03/1970 When did you stop smoking? 05/24/2018 How long has it been since you last smoked? 5-10 years Additional Details Category Social Info Options Details Migrated Social History Migrated Social History Alcohol Intake: None 06/07/2021,Tobacco Years: Former smoker 06/07/2021 Problems Problem Type SNOMED Code ICD Code Onset Dates Problem Status W/U Status Risk Notes Problem Severe depressed bipolar I disorder without psychotic features (23489052) Bipolar disorder, current episode depressed, severe, without psychotic features (F31.4) Active confirmed Problem Generalized anxiety disorder (07081636) Generalized anxiety disorder (F41.1) Active confirmed Problem Post-traumatic stress disorder (05200484) Post-traumatic stress disorder, unspecified (F43.10) Active confirmed Problem 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) Active confirmed Problem Primary insomnia (2797524) Primary insomnia (F51.01) Active confirmed Vital Signs Heart Rate 80 /min 02/01/2025 Height-cm 162.56 cm 02/01/2025 Blood pressure diastolic 75 mm Hg 02/01/2025 Weight-kg 88.45 kg 02/01/2025 Height 64.00 in 02/01/2025 Blood pressure systolic 110 mm Hg 02/01/2025 Weight 195 lbs 02/01/2025 BMI 33.47 kg/m2 02/01/2025 Encounters Encounter Location Date Provider Diagnosis [facility] [email or web address] [facility] [address] [facility] [address] [place] [address] 02/01/2025 Theodore Wilson Bipolar disorder, current episode depressed, severe, without psychotic features F31.4 ; Primary insomnia F51.01 ; Post-traumatic stress disorder, unspecified F43.10 and Generalized anxiety disorder F41.1 [facility] [email or web address] [facility] [address] [facility] [address] [place] [address] 03/11/2024 Theodore Wilson Bipolar disorder, current episode depressed, severe, without psychotic features F31.4 ; Primary insomnia F51.01 ; Post-traumatic stress disorder, unspecified F43.10 and Generalized anxiety disorder F41.1 [employer] [address] [place] [address] 03/25/2024 Shari Hemann Post-traumatic stres s disorder, unspecified F43.10 ; Bipolar disorder, current episode depressed, severe, without psychotic features F31.4 and Conversion disorder with motor symptom or deficit F44.4 [facility] [email or web address] [facility] [address] [place] [address] 08/06/2024 Theodore Wilson Bipolar disorder, current episode depressed, severe, without psychotic features F31.4 ; Primary insomnia F51.01 ; Post-traumatic stress disorder, unspecified F43.10 and Generalized anxiety disorder F41.1 [facility] [address] [place] [address] 09/21/2024 Theodore Wilson Encounter for screen ing for depression Z13.31 ; Encounter for screening for cardiovascular disorders Z13.6 ; Bipolar disorder, current episode depressed, severe, without psychotic features F31.4 ; Primary insomnia F51.01 ; Post-traumatic stress disorder, unspecified F43.10 and Generalized anxiety disorder F41.1 Assessments Encounter Date Diagnosis (ICD Code) Assessment Notes Treatment Notes Treatment Clinical Notes Section Notes 03/11/2024 Bipolar disorder, current episode depressed, severe, without psychotic features (ICD-10 - F31.4) 1. Bipolar Disorder - Patient reports mood fluctuations and feeling down on some days, describing it as a rollercoaster. Currently on Lamotrigine 100 mg twice a day, Quetiapine 400 mg at bedtime, and Quetiapine ER 150 mg every evening. Plan: - Continue current medications as patient and provider agree that no changes are needed at this time. - Monitor mood fluctuations and reassess at the next visit or sooner if needed. 2. Anxiety - Patient experiences anxiety and is currently on Buspirone 10 mg twice a day and Sertraline 50 mg every day. Plan: - Continue current medications and monitor the patient's anxiety levels. - Encourage the patient to engage in relaxation techniques and consider therapy if anxiety worsens or does not improve. 3. Chronic Pain - Patient reports physical limitations and pain affecting daily functioning and mood. Plan: - Encourage the patient to follow up with their primary care provider or landscape painter to address pain management and explore non-pharmacolo gical interventions. 4. Sleep Disturbances - Patient reports waking up at night and having difficulty falling back asleep. Plan: - Encourage the patient to practice good sleep hygiene, such as maintaining a consistent sleep schedule, creating a relaxing bedtime routine, and avoiding stimulating activities before bedtime. - Reassess sleep quality at the next visit. 5. Psychosocial Stressors - Patient reports stress related to her daughter's behavior and concerns about her own and her 's health and future. Plan: - Encourage the patient to seek support from friends, family, or support groups to help manage stress. - Consider referral to a therapist for additional support in coping with psychosocial stressors. 03/25/2024 Bipolar disorder, current episode depressed, severe, without psychotic features (ICD-10 - F31.4) 03/25/2024 Post-traumatic stress disorder, unspecified (ICD-10 - F43.10) 08/06/2024 Bipolar disorder, current episode depressed, severe, without psychotic features (ICD-10 - F31.4) 09/21/2024 Encounter for screening for depression (ICD-10 - Z13.31) 02/01/2025 Bipolar disorder, current episode depressed, severe, without psychotic features (ICD-10 - F31.4) 03/11/2024 Primary insomnia (ICD-10 - F51.01) 1. Bipolar Disorder - Patient reports mood fluctuations and feeling down on some days, describing it as a rollercoaster. Currently on Lamotrigine 100 mg twice a day, Quetiapine 400 mg at bedtime, and Quetiapine ER 150 mg every evening. Plan: - Continue current medications as patient and provider agree that no changes are needed at this time. - Monitor mood fluctuations and reassess at the next visit or sooner if needed. 2. Anxiety - Patient experiences anxiety and is currently on Buspirone 10 mg twice a day and Sertraline 50 mg every day. Plan: - Continue current medications and monitor the patient's anxiety levels. - Encourage the patient to engage in relaxation techniques and consider therapy if anxiety worsens or does not improve. 3. Chronic Pain - Patient reports physical limitations and pain affecting daily functioning and mood. Plan: - Encourage the patient to follow up with their primary care provider or landscape painter to address pain management and explore non-pharmacolo gical interventions. 4. Sleep Disturbances - Patient reports waking up at night and having difficulty falling back asleep. Plan: - Encourage the patient to practice good sleep hygiene, such as maintaining a consistent sleep schedule, creating a relaxing bedtime routine, and avoiding stimulating activities before bedtime. - Reassess sleep quality at the next visit. 5. Psychosocial Stressors - Patient reports stress related to her daughter's behavior and concerns about her own and her 's health and future. Plan: - Encourage the patient to seek support from friends, family, or support groups to help manage stress. - Consider referral to a therapist for additional support in coping with psychosocial stressors. 08/06/2024 Primary insomnia (ICD-10 - F51.01) 09/21/2024 Encounter for screening for cardiovascular disorders (ICD-10 - Z13.6) 02/01/2025 Primary insomnia (ICD-10 - F51.01) 03/25/2024 Conversion disorder with motor symptom or deficit (ICD-10 - F44.4) 03/11/2024 Post-traumatic stress disorder, unspecified (ICD-10 - F43.10) 1. Bipolar Disorder - Patient reports mood fluctuations and feeling down on some days, describing it as a rollercoaster. Currently on Lamotrigine 100 mg twice a day, Quetiapine 400 mg at bedtime, and Quetiapine ER 150 mg every evening. Plan: - Continue current medications as patient and provider agree that no changes are needed at this time. - Monitor mood fluctuations and reassess at the next visit or sooner if needed. 2. Anxiety - Patient experiences anxiety and is currently on Buspirone 10 mg twice a day and Sertraline 50 mg every day. Plan: - Continue current medications and monitor the patient's anxiety levels. - Encourage the patient to engage in relaxation techniques and consider therapy if anxiety worsens or does not improve. 3. Chronic Pain - Patient reports physical limitations and pain affecting daily functioning and mood. Plan: - Encourage the patient to follow up with their primary care provider or landscape painter to address pain management and explore non-pharmacolo gical interventions. 4. Sleep Disturbances - Patient reports waking up at night and having difficulty falling back asleep. Plan: - Encourage the patient to practice good sleep hygiene, such as maintaining a consistent sleep schedule, creating a relaxing bedtime routine, and avoiding stimulating activities before bedtime. - Reassess sleep quality at the next visit. 5. Psychosocial Stressors - Patient reports stress related to her daughter's behavior and concerns about her own and her 's health and future. Plan: - Encourage the patient to seek support from friends, family, or support groups to help manage stress. - Consider referral to a therapist for additional support in coping with psychosocial stressors. 02/01/2025 Post-traumatic stress disorder, unspecified (ICD-10 - F43.10) 09/21/2024 Bipolar disorder, current episode depressed, severe, without psychotic features (ICD-10 - F31.4) 08/06/2024 Post-traumatic stress disorder, unspecified (ICD-10 - F43.10) 02/01/2025 Generalized anxiety disorder (ICD-10 - F41.1) 09/21/2024 Primary insomnia (ICD-10 - F51.01) 03/11/2024 Generalized anxiety disorder (ICD-10 - F41.1) 1. Bipolar Disorder - Patient reports mood fluctuations and feeling down on some days, describing it as a rollercoaster. Currently on Lamotrigine 100 mg twice a day, Quetiapine 400 mg at bedtime, and Quetiapine ER 150 mg every evening. Plan: - Continue current medications as patient and provider agree that no changes are needed at this time. - Monitor mood fluctuations and reassess at the next visit or sooner if needed. 2. Anxiety - Patient experiences anxiety and is currently on Buspirone 10 mg twice a day and Sertraline 50 mg every day. Plan: - Continue current medications and monitor the patient's anxiety levels. - Encourage the patient to engage in relaxation techniques and consider therapy if anxiety worsens or does not improve. 3. Chronic Pain - Patient reports physical limitations and pain affecting daily functioning and mood. Plan: - Encourage the patient to follow up with their primary care provider or landscape painter to address pain management and explore non-pharmacolo gical interventions. 4. Sleep Disturbances - Patient reports waking up at night and having difficulty falling back asleep. Plan: - Encourage the patient to practice good sleep hygiene, such as maintaining a consistent sleep schedule, creating a relaxing bedtime routine, and avoiding stimulating activities before bedtime. - Reassess sleep quality at the next visit. 5. Psychosocial Stressors - Patient reports stress related to her daughter's behavior and concerns about her own and her 's health and future. Plan: - Encourage the patient to seek support from friends, family, or support groups to help manage stress. - Consider referral to a therapist for additional support in coping with psychosocial stressors. 08/06/2024 Generalized anxiety disorder (ICD-10 - F41.1) 09/21/2024 Post-traumatic stress disorder, unspecified (ICD-10 - F43.10) 09/21/2024 Generalized anxiety disorder (ICD-10 - F41.1) 08/06/2024 Other 1. Anemia: - Patient reports extreme fatigue due to anemia, with recent lab tests confirming severe anemia. - Awaiting stool sample results for further evaluation. Plan: - Continue current vitamin supplementation (B12, vitamin D, and multivitamin for men and women over 65). - Monitor stool sample results and initiate appropriate treatment once the cause of anemia is identified. - Encourage patient to follow up with primary care provider for ongoing management of anemia. 2. Major Depressive Disorder: - Patient reports persistent depressive symptoms, including frequent crying, feelings of indifference, and lack of motivation despite current medications. - Current medications: lamotrigine, quetiapine, quetiapine XR, bupropion, and sertraline. Plan: - Increase Seroquel XR dosage to 300 mg in the evenings to help with depression symptoms. - Continue lamotrigine 100 mg twice a day, quetiapine 400 mg at bedtime, bupropion, and sertraline 50 mg daily. - Schedule a follow-up appointment in 6 weeks to assess the effectiveness of the medication adjustment. 3. Family and Social Stressors: - Patient reports strained relationships with sisters and feelings of isolation. - Concerns about her 's health. Plan: - Encourage the patient to consider seeking therapy or counseling to address family and social stressors. - Provide resources for local support groups or therapists specializing in family issues and caregiver support. 4. Sleep Disturbance: - Patient reports insufficient sleep due to dogs waking her up early and occasional daytime napping. - Currently taking quetiapine to help with sleep. Plan: - Encourage the patient to establish a consistent sleep schedule and practice good sleep hygiene. - Consider discussing with the patient potential strategies for managing the dogs' director of market intelligence wake-ups. - Monitor the patient's sleep quality during the follow-up appointment in 6 weeks. 09/21/2024 Other Tommy Tejeda, an elderly female patient with a history of depression and sleep issues, presents for medication management and reports stable mood with occasional fluctuations. Major Depressive Disorder Assessment: Patient reports overall stable mood with the current medication regimen, though she still experiences up and down days. She expresses feelings of guilt and frustration related to her limited physical capabilities, stating I feel really bad because I can't do what I need to do. Patient also mentions concern for her 's health, which may be contributing to her stress levels. Plan: - Continue current medication regimen for depression management - Adjust quetiapine XR from 300 mg daily to 150 mg PO BID (can be taken together) - Continue quetiapine 400 mg PO at bedtime - Follow up in 3 months Insomnia Assessment: Patient reports good sleep with current medication regimen, stating I don't have any trouble going to sleep. Plan: - Continue current medication regimen for sleep management the note is transcribed using speech recognition software. It is a reflection of a visit with the patient. It might have some inaccuracy, including medication names and transcribing errors, though efforts have been made to correct them. Plan Of Treatment Next Appt Details Provider Name:Theodore Bowers leola, 04/26/2025 02:00:00 PM, [address], [facility] [address], [place], [address], Insurance Providers Payer Name Payer Address Payer Phone Subscriber Number Group Number Insured Name Patient Relationship to Insured Coverage Start Date Coverage End Date [place] [address] [place] [address] [id number] TOMMY TEJEDA Self - patient is the insured [employer] Medicare Supplement [address] [place] [address] [id number] TOMMY TEJEDA Self - patient is the insured Medical (General) History Medical History History ICD Code Problems: Bipolar affective disorder, cu rrent episode depression Complicated grieving Generalized anxiety disorder Posttraumatic stress disorder Primary insomnia Psychologic conversion disorder Tremor , Imported from Highlights: On July 15, 2024, the patient had a hospital encounter at [facility], overseen by Sandra Live SUPERVISOR TELEPHONE ANSWERING SERVICE. The patient's ongoing conditions include long-term use of opiate analgesic, lumbar facet arthropathy, and lumbar post-laminectomy syndrome. The patient's use of opiate analgesics indicates chronic pain management, likely due to the lumbar conditions. Lumbar facet arthropathy and post-laminectomy syndrome suggest the patient has had spinal surgery in the past and is experiencing ongoing back issues. undefined Imported from Highlights: On 07/15/2024, the patient was seen by Sandra Live NP at [facility] for long-term use of opiate analgesics, lumbar facet arthropathy, and lumbar post-laminectomy syndrome. This was followed by another hospital encounter on 10/14/2024 with Sandra Live SUPERVISOR TELEPHONE ANSWERING SERVICE, addressing the continued use of opiate analgesics and lumbar post-laminectomy syndrome. The next day, 10/15/2024, an office visit with Kalie Mccall MD at [facility] included hypertension, lipid screening, and palpitations. On 01/06/2025, Arturo Aguilar MD at [facility] treated the patient for lumbar facet arthropathy. Earlier, on 04/22/2024, Sandra Live NP at [facility] had managed lumbar post-laminectomy syndrome and lumbar radiculopathy. Surgical History Surgery Date(Month/Year) Tonsilectomy/adenoids 06/24/1970 Appendectomy (56163) 06/24/1975 Removal of gallbladder (58652) 5 Hysterectomy (87988) 06/24/1984 Neurosurgery 06/24/2015
--- OUTSIDE RECORDS SUMMARY | 2025-02-09 13:47 | XMS_ITS | Encounter Summary ---
Author Organization [facility] Address [address] 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
--- OUTSIDE RECORDS SUMMARY | 2025-02-09 13:47 | XMS_ITS | Clinical Summary ---
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 -Pain Behavior[facility] Carlie Brumfield RN Medical Devices Implanted Type Area Shop Assistant Device Identifier Shelf Expiration Date Model / Serial / Lot Kit Stimulator Octrode L60 Cm Trial Lead Neurostimulator - [id number] Implanted:Qty: 2 on 06/05/2017 by Eddy Johns MD at [facility] N/A: Thoracic- Lumbar Spine [facility] / / Insurance MEDICARE [facility] MEDICARE [facility] [place] MEDICARE [place] Care Teams Dry Heat Room Attendant Relationship Specialty Start Date End Date Jett Loera MD [address] [facility] [address] [address] [place] [id number] PCP - General Family Practice 02/22/23 Barbie Cartagena, RN Registered Nurse Pain Management 06/13/17 Leah Granda, RN Registered Nurse 10/31/17 Justin Sorensen MD [address] [facility] [address] [address] [place] [id number] Anesthesiologist Pain Management 05/07/22
--- OUTSIDE RECORDS SUMMARY | 2025-02-09 13:47 | XMS_ITS | Clinical Summary ---
Author Organization [facility] Address [address], [facility] [address] [place] [address] Phone Care Team Providers Care Field Scout Name Role Phone Eber Garcia DO Primary Care Provider [phone] Allergies Active Allergy Reactions Criticality Noted Date [...] Comments Blood Pressure 170/80 06/29/2019 11:54 AM BULLET MAKER Pulse 58 06/29/2019 10:11 AM BULLET MAKER Temperature 36 C (96.8 F) 06/29/2019 11:54 AM BULLET MAKER Respiratory Rate 10 06/29/2019 11:54 AM BULLET MAKER Oxygen Saturation 96% 06/29/2019 11:54 AM BULLET MAKER Inhaled Oxygen Concentration - - Weight 80.3 [...] this topic Medical Devices Implanted Type Area Cut Press Operator Device Identifier Shelf Expiration Date Model / Serial / Lot Clip 360 Resolution 235cm - [id number] Implanted:Qty: 2 on 06/29/2019 by Gregorio Gonzalez, at [facility] IMPLANT [employer] 02/13/2022 [id number] / [id number] / [id number] Clip 360 Resolution 235cm - [id number] Implanted:Qty: 3 on 06/29/2019 by Gregorio Gonzalez, DO at [facility] IMPLANT [employer] 10/19/2021 [id number] / [id number] / [id number] Procedures Procedure Name Priority Date/Time Associated Diagnosis Comments COLONOSCOPY Routine 05/08/2013 from Last 3 Months or Most Recently Relevant to Health Maintenance Results * COLONOSCOPY (05/08/2013) us Not On File Provider PROCEDURE/MINOR SURGICAL OR DERABLES Final Result from Last 3 Months or Most Recently Relevant to Health Maintenance Insurance MEDICARE [facility] Care Teams Field Scout Relationship Specialty Start Date End Date Eber Garcia DO [address] [place] [address] PCP - General Family Medicine 07/15/18
[2025-02-09 14:20] LABS: Hematocrit 35.8 % (37.0-47.0); Hemoglobin 11.1 g/dL (12.0-15.0); Mean Corpuscular HGB Conc 31.0 g/dl (32-36); Mean Corpuscular Hemoglobin 26.4 pg (26-34); Mean Corpuscular Volume 85.2 fl (80-100); Platelet Count Result 185 k/mm3 (150-375); Red Blood Count 4.20 M/mm3 (4.2-5.4); White Blood Count 9.2 K/mm3 (4.5-10.0)
[2025-02-09 17:36] LABS: Alanine Aminotransferase 17 U/L (6-35); Albumin Level 4.7 g/dL (3.5-5.1); Alkaline Phosphatase 82 U/L (38-126); Anion Gap 13 mmol/L (4-12); Aspartate Amino Transferase 31 U/L (14-36); Bilirubin,Total 0.3 mg/dL (0.2-1.3); Blood Urea Nitrogen 17 mg/dL (7-17); Calcium 9.6 mg/dL (8.4-10.2); Carbon Dioxide 26 mmol/L (22-30); Chloride 97 mmol/L (98-107); Cholesterol 194 mg/dL (0-200); Estimated Glomerular Filt Rate 59; Glucose 106 mg/dL (65-110); HDL Direct 59 mg/dL; Potassium 3.7 mmol/L (3.4-5.0); Sodium 136 mmol/L (137-145); Total Protein 8.4 g/dL (6.3-8.2); Triglycerides 162 mg/dL (<150)
[2025-02-09 18:07] LABS: Thyroid Stimulating Hormone 0.558 uIU/mL (0.465-4.680)
[2025-02-09 18:43] LABS: Vitamin B12 429.0 pg/mL (239-931)
== END 2025-02-09 13:22 | disposition home or self-care (01) ==
LOC: ANHLAB 13:29
PROVIDERS: PCP Nurse Practitioner Adult Health; Visit Provider Nurse Practitioner Adult Health
DX: R94.6 Abnormal results of thyroid function studies (principal); E03.9 Hypothyroidism, unspecified; E53.8 Deficiency of other specified B group vitamins; N39.0 Urinary tract infection, site not specified; E55.9 Vitamin D deficiency, unspecified; R05.3 Chronic cough
CPT/HCPCS: 36415; 80053; 80061; 82306; 82607; 82746; 84443; 85027